=== PATIENT | female | born 1940 | race Caucasian/White ===

== ENCOUNTER 2016-07-25 10:12 | Emergency (ER) | payer MEDICARE ==
[2011-11-14 05:09] VITALS: BMI 40.3
[2016-07-25 11:02] LABS: APPEARANCE CLOUDY (CLEAR); BACTERIA MANY /hpf (NONE SEEN); BILIRUBIN NEGATIVE (NEGATIVE); COLOR YELLOW (YELLOW); EPITHELIAL CELLS 0-5 /hpf (0-5); GLUCOSE NEGATIVE (NEGATIVE); KETONE NEGATIVE (NEGATIVE); LEUKOCYTE ESTERASE 2+ (NEGATIVE); MUCUS <1+ /lpf (NONE SEEN); NITRITE POSITIVE (NEGATIVE); PROTEIN 3+ mg/dL (NEGATIVE); SPECIFIC GRAVITY 1.015 (1.005-1.020); UROBILINOGEN NORMAL (NORMAL); WHITE CELLS - URINE >50 /hpf (0-5)
[2016-07-25 11:22] LABS: ALBUMIN 3.2 g/dL (3.4-5.0); BILIRUBIN - TOTAL 0.33 mg/dL (0.2-1.3); CARBON DIOXIDE 31.4 mmol/L (21.0-32.0); CREATININE - SERUM 1.9 mg/dL (0.6-1.3); POTASSIUM - SERUM 5.4 mmol/L (3.5-5.1); PROTEIN - SERUM 7.1 g/dL (6.4-8.2)
[2016-07-25 11:36] LABS: BASOPHILS 0.2 % (0-2); EOSINOPHILS 1.2 % (0-7); HEMATOCRIT 48.3 % (36.0-48.0); HEMOGLOBIN 14.8 g/dL (12-16); IMMATURE GRANULOCYTES 0.2 % (0-5); LYMPHOCYTES 13.2 % (15-50); MCHC 30.6 g/dL (31.0-37.0); MCV 94.5 fL (80.0-100.0); MEAN PLATELET VOLUME 11.3 fL (7.4-10.4); MONOCYTES 6.6 % (2-11); NEUTROPHILS 78.6 % (40-80); PLATELET COUNT 286 10x3/uL (130-400); RBC 5.11 10x6/uL (4.00-5.40); RDW 13.9 % (11.5-14.5)
== END 2016-07-25 13:45 | disposition home or self-care (01) ==
LOC: D.ER 10:12
PROVIDERS: Emergency Medicine
DX: N39.0 Urinary tract infection, site not specified (principal); E11.9 Type 2 diabetes mellitus without complications; I50.9 Heart failure, unspecified

== ENCOUNTER 2016-08-12 19:17 | Emergency (ER) | payer MEDICARE ==
[2011-11-14 05:09] VITALS: BMI 40.3
[2016-08-12 19:54] LABS: BASOPHILS 0.3 % (0-2); EOSINOPHILS 0.3 % (0-7); HEMATOCRIT 50.8 % (36.0-48.0); HEMOGLOBIN 16.1 g/dL (12-16); IMMATURE GRANULOCYTES 0.2 % (0-5); LYMPHOCYTES 10.1 % (15-50); MCH 29.7 pg (26.0-34.0); MCHC 31.7 g/dL (31.0-37.0); MCV 93.6 fL (80.0-100.0); MEAN PLATELET VOLUME 11.4 fL (7.4-10.4); NEUTROPHILS 78.1 % (40-80); PLATELET COUNT 256 10x3/uL (130-400); RBC 5.43 10x6/uL (4.00-5.40); RDW 13.5 % (11.5-14.5); WBC 10.3 10x3/uL (4.8-10.8)
[2016-08-12 20:12] LABS: APTT 25.3 SECONDS (22.8-39.4); INR 1.06 (0.85-1.17); PROTIME 13.7 SECONDS (11.6-15.0)
[2016-08-12 20:17] LABS: ALBUMIN 3.2 g/dL (3.4-5.0); ANION GAP 13.6 mmol/L (8-16); BILIRUBIN - TOTAL 0.43 mg/dL (0.2-1.3); CALCIUM 8.9 mg/dL (8.5-10.1); CARBON DIOXIDE 27.4 mmol/L (21.0-32.0); CREATININE - SERUM 1.7 mg/dL (0.6-1.3)
[2016-08-12 21:25] LABS: APPEARANCE CLEAR (CLEAR); BILIRUBIN NEGATIVE (NEGATIVE); COLOR YELLOW (YELLOW); GLUCOSE NEGATIVE (NEGATIVE); KETONE NEGATIVE (NEGATIVE); LEUKOCYTE ESTERASE NEGATIVE (NEGATIVE); NITRITE NEGATIVE (NEGATIVE); PROTEIN TRACE mg/dL (NEGATIVE); SPECIFIC GRAVITY 1.025 (1.005-1.020); UROBILINOGEN NORMAL (NORMAL)
== END 2016-08-12 21:45 | disposition home or self-care (01) ==
LOC: D.ER 19:17
PROVIDERS: Emergency Medicine; Nurse Practitioner Acute Care
DX: R10.9 Unspecified abdominal pain (principal); R92.1 Mammographic calcification found on diagnostic imaging of breast

== ENCOUNTER → 2017-02-18 14:30 | Outpatient (CLI) | payer MEDICARE, MEDICAID ==
[2011-11-14 05:09] VITALS: BMI 40.3
== END | disposition home or self-care (01) ==
LOC: D.MRI 14:30
DX: S43.402D Unspecified sprain of left shoulder joint, subsequent encounter (principal)

== ENCOUNTER 2017-06-09 08:00 | Day surgery (SDC) | payer MEDICARE, MEDICAID ==
[~2017-06-09] VITALS: Ht 157.5 cm; Wt 104.5 kg
--- NOTE | ~2017-06-09 | OP ---
PATIENT NAME: SANDRA BATES MEDICAL RECORD: [id number] :42 LOCATION:[facility] ADMISSION DATE: SURGEON: J LUIS BENTON DO DATE OF OPERATION: 06/09/2017 PROCEDURE: EGD with biopsies. INDICATIONS FOR PROCEDURE: Heartburn and shoulder pain. SCOPE: Olympus video gastroscope. MEDICATIONS: Propofol 150 mg IV per anesthesia. ESTIMATED BLOOD LOSS: Minimal. COMPLICATIONS: None. FINDINGS: Informed consent was given. The patient was made comfortable with the above medication. After reaching an adequate level of sedation by slow IV push, the patient was placed on her left side. The endoscope was advanced under direct visualization through the mouth to the second portion of the duodenum. The upper, middle, and lower thirds of the esophagus appeared normal. At the GE junction, there was very mild evidence of LA class A reflux induced esophagitis without ulcers or erosions. The endoscope was advanced beyond the GE junction into the stomach and retroflexed to view the cardia and fundus, which appeared normal. Throughout the proximal body, there were some patchy areas of erythema and granularity as well as congestion. There was a patchy site where there appeared to be multiple superficial ulcerations. In the antrum, there was also some patchy erythema, granularity, and congestion consistent with possible gastritis. Random biopsies were taken to submit for histology and to rule out H. pylori. There was a single polypoid site in the prepyloric region. This was biopsied using cold forceps. The site did not appear malignant. Biopsies were taken to confirm the benign nature. It did appear consistent with reactive gastritis and polypoid formation. The endoscope was advanced beyond the pylorus into the duodenum where the bulb, first portion, and second portion of the duodenum appeared normal. The endoscope was withdrawn from the patient. The patient tolerated the procedure well and there were no complications. IMPRESSION: 1. LA class A reflux-induced esophagitis. 2. Gastritis with few superficial ulcerations without bleeding. 3. Single gastric polyp in the prepyloric region. 4. Normal duodenum. PLAN AND RECOMMENDATIONS: 1. Discharge home when recovery parameters are met. 2. GERD precautions. 3. Continue current medications including Protonix, Carafate, and Zantac as needed for heartburn symptoms. 4. We will order a right upper quadrant ultrasound and consider a PIPIDA scan regarding the epigastric pain and pain in the shoulder. 5. Further recommendations to follow diagnostic imaging. TRANSINT:[id number] Voice Confirmation ID: [id number] DOCUMENT ID: [id number] OPERATIVE REPORT [id number] SANDRA BATES,J LUIS Ernandez DO at 1524 CC: [id number] DICTATION DATE: 06/09/17 0957 STOCK MANAGER: 06/09/17 1255 [facility] 06/09/17 [place] [id number] [place] [address]
[2017-06-09] MEDS ORDERED: HYDROCORTISONE30 G9 TOPICAL (08:31)
[2017-06-09] MEDS ORDERED: CARAFATE1 G/10 ML (08:31)
[2017-06-09] MEDS ORDERED: FLUNISOLIDE29 MCG NASAL (08:31)
[2017-06-09] MEDS ORDERED: HUMALOG ×2 (08:32→08:33)
[2017-06-09] MEDS ORDERED: GABAPENTIN100 MG PO (08:32)
[2017-06-09] MEDS ORDERED: ZOCOR80 MG PO (08:34)
[2017-06-09] MEDS ORDERED: TOPROL XL25 MG PO (08:34)
[2017-06-09] MEDS ORDERED: LEVEMIR FLEXTOUCH 10 (08:34)
[2017-06-09] MEDS ORDERED: PLAVIX75 MG PO (08:36)
[2017-06-09] MEDS ORDERED: BAYER CHEWABLE81 MG PO (08:36)
[2017-06-09 08:44] VITALS: Ht 157.5 cm; Wt 104.5 kg
[2017-06-09 09:29] LABS: HEMATOCRIT 47.4 % (36.0-48.0); HEMOGLOBIN 15.2 g/dL (12-16); MCH 29.9 pg (26.0-34.0); MCHC 32.1 g/dL (31.0-37.0); MCV 93.3 fL (80.0-100.0); MEAN PLATELET VOLUME 12.2 fL (7.4-10.4); RBC 5.08 10x6/uL (4.00-5.40); RDW 14.9 % (11.5-14.5); WBC 10.9 10x3/uL (4.8-10.8)
== END 2017-06-09 11:00 | disposition home or self-care (01) ==
LOC: D.OPS 08:00
PROVIDERS: Anesthesiology
DX: K21.0 Gastro-esophageal reflux disease with esophagitis (principal); K29.70 Gastritis, unspecified, without bleeding; K31.7 Polyp of stomach and duodenum; I25.10 Atherosclerotic heart disease of native coronary artery without angina pectoris; E11.9 Type 2 diabetes mellitus without complications; E66.01 Morbid (severe) obesity due to excess calories; Z01.812 Encounter for preprocedural laboratory examination

== ENCOUNTER 2017-06-21 23:55 | Emergency (ER) | payer MEDICARE, MEDICAID ==
[2017-06-09 08:44] VITALS: BMI 42.1
[~2017-06-21 23:55] MED LIST: BAYER CHEWABLE81 MG PO; CARAFATE1 G/10 ML; FLUNISOLIDE29 MCG NASAL; GABAPENTIN100 MG PO; HUMALOG; HYDROCORTISONE30 G9 TOPICAL; LEVEMIR FLEXTOUCH 10; PLAVIX75 MG PO; TOPROL XL25 MG PO; ZOCOR80 MG PO
[2017-06-22 00:22] LABS: BASOPHILS 0.4 % (0-2); EOSINOPHILS 3.6 % (0-7); HEMATOCRIT 46.6 % (36.0-48.0); HEMOGLOBIN 14.9 g/dL (12-16); IMMATURE GRANULOCYTES 0.6 % (0-5); LYMPHOCYTES 27.3 % (15-50); MCH 29.7 pg (26.0-34.0); MCV 92.8 fL (80.0-100.0); MEAN PLATELET VOLUME 10.4 fL (7.4-10.4); MONOCYTES 11.6 % (2-11); NEUTROPHILS 56.5 % (40-80); PLATELET COUNT 326 10x3/uL (130-400); RBC 5.02 10x6/uL (4.00-5.40); RDW 14.4 % (11.5-14.5); WBC 12.6 10x3/uL (4.8-10.8)
[2017-06-22 00:31] LABS: INR 0.93 (0.85-1.17)
[2017-06-22 00:32] LABS: APTT 25.1 SECONDS (22.8-39.4)
[2017-06-22 00:36] LABS: ANION GAP 6.8 mmol/L (8-16); BILIRUBIN - TOTAL 0.14 mg/dL (0.2-1.3); CALCIUM 9.2 mg/dL (8.5-10.1); CARBON DIOXIDE 30.5 mmol/L (21.0-32.0); CREATININE - SERUM 1.5 mg/dL (0.6-1.3); POTASSIUM - SERUM 4.3 mmol/L (3.5-5.1); PROTEIN - SERUM 7.6 g/dL (6.4-8.2)
== END 2017-06-22 01:26 | disposition home or self-care (01) ==
LOC: D.ER 23:55
PROVIDERS: Emergency Medicine
DX: G45.9 Transient cerebral ischemic attack, unspecified (principal); I10 Essential (primary) hypertension; E11.9 Type 2 diabetes mellitus without complications

== ENCOUNTER 2017-07-17 05:16 | Day surgery (SDC) | payer MEDICARE, MEDICAID ==
[2017-07-16 16:00] LABS: HEMOGLOBIN 15.3 g/dL (12-16); MCH 29.7 pg (26.0-34.0); MCHC 31.9 g/dL (31.0-37.0); MEAN PLATELET VOLUME 11.1 fL (7.4-10.4); RBC 5.16 10x6/uL (4.00-5.40); RDW 13.7 % (11.5-14.5)
[2017-07-16 16:14] LABS: ANION GAP 11.4 mmol/L (8-16); CALCIUM 9.4 mg/dL (8.5-10.1); CARBON DIOXIDE 32.5 mmol/L (21.0-32.0); CREATININE - SERUM 1.6 mg/dL (0.6-1.3); POTASSIUM - SERUM 4.9 mmol/L (3.5-5.1)
[~2017-07-17] VITALS: Ht 157.5 cm; Wt 96.6 kg
--- NOTE | ~2017-07-17 | OP ---
PATIENT NAME: SANDRA BATES MEDICAL RECORD: [id number] :42 LOCATION:[facility] ADMISSION DATE: SURGEON: TRUE SOTO MD DATE OF OPERATION: 07/17/2017 SURGEON: True Soto MD ANESTHESIA: MAC by Partha Bell M.D. DIAGNOSIS: Urge urinary incontinence. PROCEDURES: Cystoscopy and intravesical Botox injection 100 units. FINDINGS: Diffuse bladder inflammation with no bladder tumors. Single ureteral orifices bilaterally. BLOOD LOSS: None. CLINICAL HISTORY: This is a 77-year-old female with urge urinary incontinence. She also has symptoms of stress urinary incontinence, but I did not see any stress incontinence on examination. She was given Myrbetriq for 3 weeks and she had no response to medication. She would like to try intravesical Botox. She has a history of coronary artery stents, which were last placed [address] Echols gave permission to withhold her Plavix prior to the procedure. She is allergic to MORPHINE, PENICILLIN, and SULFA. She was given Levaquin IV detention attendant to the OR. DESCRIPTION OF PROCEDURE: The patient was given IV sedation. She was placed in the dorsal lithotomy position and prepped and draped. The 21-Yi cystoscope with 30-degree lens was used for visualization. Findings are as listed above. The Larry's needle was used at 10 different locations. Then, 1 cc of Botox solution was injected at each of these 10 different sites. Each mL of Botox solution contains 10 units of Botox. Once the injections were completed, the bladder was emptied through the scope and then the patient was brought to the recovery room. TRANSINT:[id number] Voice Confirmation ID: [id number] DOCUMENT ID: [id number] TRUE SOTO MD at 1413 CC: [id number] DICTATION DATE: 07/17/17 0811 VAULT SERVICE MECHANIC: 07/17/17 1356 [facility] 07/17/17 [place] [id number]
[2017-07-17 05:52] VITALS: Ht 157.5 cm; Wt 96.6 kg
== END 2017-07-17 09:05 | disposition home or self-care (01) ==
LOC: D.OPS 05:16
PROVIDERS: Anesthesiology
DX: N39.41 Urge incontinence (principal); Z95.5 Presence of coronary angioplasty implant and graft; Z79.02 Long term (current) use of antithrombotics/antiplatelets; Z88.5 Allergy status to narcotic agent; Z88.0 Allergy status to penicillin; Z88.2 Allergy status to sulfonamides; Z01.812 Encounter for preprocedural laboratory examination

== ENCOUNTER 2017-12-21 12:27 | Inpatient (IN) | payer MEDICARE, MEDICAID ==
[~2017-12-21] VITALS: Ht 157.5 cm; Wt 97.5 kg
--- NOTE | ~2017-12-21 | MORECARE ---
CASE MANAGEMENT DISCHARGE SUMMARY PATIENT: SANDRA BATES UNIT: [id number] ADM DATE: 12/21/17 AGE: 77 : 41 SEX: F ROOM/BED: D.2240 AUTHOR: MARILEE OAKES PHYSICIAN: REFERRING PHYSICIAN: LILLIANA LOVE MD DATE OF SERVICE: 12/24/17 Discharge Plan Patient Name: SANDRA BATES [facility] [facility] 1940 Planned Disposition: Home Anticipated Discharge Date: Discharge Date: Expected LOS: Initial Reviewer: [email or web address] Initial Review Date: 12/24/2017 Generated: 12/24/17 4:10 pm DCPIA - Discharge Planning Initial Assessment Updated by [id number]: Ailyn Alamo on 12/24/17 3:04 pm * Is the patient Alert and Oriented? Yes * How many steps to enter\exit or inside your home? 4-5 w/rail * PCP Dr. Otoole * Pharmacy [place] * Preadmission Environment Home with Family * ADLs Partial Dependent * Partial ADLs (Assistance needed) Ambulation Bathing Dressing Medication Management Transfers * Equipment Elevated [facility] Bed Other Oxygen Rolling Walker Wheelchair * Other Equipment Portable oxygen Pulse oximeter Blood Pressure Machine * List name and contact numbers for known caregivers / representatives who currently or will assist patient after discharge: Diane Elizondo - DTR - [phone] * Verbal permission to speak to the caregivers and representatives has been obtained from the patient. Yes * Community resources currently utilized Private Duty Care * Please name any agencies selected above. [facility] * Additional services required to return to the preadmission environment? No * Can the patient safely return to the preadmission environment? Yes * Has this patient been hospitalized within the prior 30 days at any hospital? No Last DP export: 12/24/17 1:55 Patient Name: SANDRA BATES Page [id number] at 1511 All edits/amendments must be made on the electronic document DICTATION DATE: 12/24/17 1510 BLOWER INSULATOR: DEWEY 12/24/17 1510 RPT#: [id number] DC DATE: STATUS: ADM IN [facility] [address] [facility] [place] [address] END OF REPORT
--- NOTE | ~2017-12-21 | MORECARE ---
CASE MANAGEMENT DISCHARGE SUMMARY PATIENT: SANDRA BATES UNIT: [id number] ADM DATE: 12/21/17 AGE: 77 : 41 SEX: F ROOM/BED: D.2240 AUTHOR: MARILEE OAKES PHYSICIAN: REFERRING PHYSICIAN: LILLIANA LOVE MD DATE OF SERVICE: 01/02/18 Discharge Plan Patient Name: SANDRA BATES Facility: [facility]:[place] : 1940 Planned Disposition: Home Anticipated Discharge Date: Discharge Date: 01/01/2018 Expected LOS: Initial Reviewer: [email or web address] Initial Review Date: 12/24/2017 Generated: 01/02/18 6:06 pm Comments DCP- Discharge Planning Updated by [id number]: Ailyn Alamo on 01/01/18 11:[address] Discharging home today with resumption of [facility]. Diane Elizondo has already called her boss to continue care. She will also have house calls. Declines Home health at this time. Cm will continue to follow and assist with discharge planning/needs. DCP- Discharge Planning Updated by [id number]: Ailyn Alamo on 01/01/18 10:[address] Received a call from a Sunitha in inpatient rehab that insurance has denied inpatient rehab. I spoke with the patient and her daughter about SNF and they both decline. I spoke with them about home health. Daughter works for [facility] and states that is all she needs. States they have all the DME needed, including lift chair, wheelchairs, BSC, oxygen and a door campos that rings to her home. Patient and daughter both state they feel going home with [facility] is a safe discharge. Anticipate to discharge home today with resumption of [facility] (daughter works there). DCP- Discharge Planning Updated by [email or web address]: Ailyn Alamo on 12/24/17 2:[address] Patient Name: SANDRA BATES Admission Status: ER Accout number: [id number] Admission Date: 12-21-2017 : 1940 Admission Diagnosis:URINARY TRACT INFECTION, SITE NOT SPECIFIED Attending: IVAN, Current LOS: 3 Anticipated DC Date: Planned Disposition: Home Primary Insurance: [facility] MEDICARE SOLUTIONS Discharge Planning Comments: CM met with patient to discuss discharge planning, her daughter is in the room. She lives with her . She uses a walker for ambulation. She does have a wheelchair. Her daughter states that she is at their house 6-10 hours a day. Her daughter, Diane, works for [employer] and provides personal care. I discussed the availability of inpatient rehab, SNF, and home health services. At this time, the daughter and patient refuse. Patient states her daughter is able to take care of her needs. CM will continue to follow and assist with discharge planning/needs. Automation Qa Analyst: Ailyn Alamo DCPIA - Discharge Planning Initial Assessment Updated by [id number]: Ailny Alamo on 12/24/17 3:04 pm * Is the patient Alert and Oriented? Yes * How many steps to enter\exit or inside your home? 4-5 w/rail * PCP Dr. Otoole * Pharmacy [place] * Preadmission Environment Home with Family * ADLs Partial Dependent * Partial ADLs (Assistance needed) Ambulation Bathing Dressing Medication Management Transfers * Equipment Elevated [facility] Bed Other Oxygen Rolling Walker Wheelchair * Other Equipment Portable oxygen Pulse oximeter Blood Pressure Machine * List name and contact numbers for known caregivers / representatives who currently or will assist patient after discharge: Diane Elizondo - DTR - [phone] * Verbal permission to speak to the caregivers and representatives has been obtained from the patient. Yes * Community resources currently utilized Private Duty Care * Please name any agencies selected above. [facility] * Additional services required to return to the preadmission environment? No * Can the patient safely return to the preadmission environment? Yes * Has this patient been hospitalized within the prior 30 days at any hospital? No Coverage Notice Reviewer: [email or web address] - Ailyn Alamo Notice Issued Date-Time: 01/01/2018 12:06 Notice Type: IM Discharge Notice Notice Delivered To: Patient Relationship to Patient: Self Medical Dosimetrist Name: Diane Elizondo Delivery Method: HAND - Hand Delivered Connie Days: Prior Verbal Notification: Recipient Understood Notice: Yes Recipient Signature: Yes Med Rec Note Co-signed by Attending: Coverage Notice Comment: IMM explained, signed, copy given and original placed in MR Last DP export: 01/01/18 11:18 a Patient Name: SANDRA BATES Page 70483 at 1706 All edits/amendments must be made on the electronic document DICTATION DATE: 01/02/181704 RADIO FREQUENCY TECHNICIAN: DEWEY 01/02/181704 RPT#: [id number] DC DATE:01/01/18 STATUS: DIS IN [facility] [address] [place] [address] END OF REPORT
--- NOTE | ~2017-12-21 | MORECARE ---
CASE MANAGEMENT DISCHARGE SUMMARY PATIENT: SANDAR BATES UNIT: [id number] ADM DATE: 12/21/17 AGE: 77 : 41 SEX: F ROOM/BED: D.2240 AUTHOR: MARILEE OAKES PHYSICIAN: REFERRING PHYSICIAN: LILLIANA LOVE MD DATE OF SERVICE: 12/24/17 Discharge Plan Patient Name: SANDRA BATES [facility] [facility] 1940 Planned Disposition: Home Anticipated Discharge Date: Discharge Date: Expected LOS: Initial Reviewer: [email or web address] Initial Review Date: 12/24/2017 Generated: 12/24/17 3:55 pm Patient Name: SANDRA BATES Page 25511 at 1456 All edits/amendments must be made on the electronic document DICTATION DATE: 12/24/171454 REFRIGERATING ENGINEER: DEWEY 12/24/171454 RPT#: [id number] DC DATE: STATUS: ADM IN [facility] [address] [place] [address] END OF REPORT
--- NOTE | ~2017-12-21 | MORECARE ---
CASE MANAGEMENT DISCHARGE SUMMARY PATIENT: SANDRA BATES UNIT: [id number] ADM DATE: 12/21/17 AGE: 77 : 41 SEX: F ROOM/BED: D.2240 AUTHOR: MARILEE OAKES PHYSICIAN: REFERRING PHYSICIAN: LILLIANA LOVE MD DATE OF SERVICE: 12/24/17 Discharge Plan Patient Name: SANDRA BATES Facility: [facility]:[place] : 1940 Planned Disposition: Home Anticipated Discharge Date: Discharge Date: Expected LOS: Initial Reviewer: [id number] Initial Review Date: 12/24/2017 Generated: 12/24/17 4:18 pm Comments DCP- Discharge Planning Updated by [id number]: Ailyn Alamo on 12/24/17 2:[address] Patient Name: SANDRA BATES Admission Status: ER Accout number: [id number] Admission Date: 12-21-2017 : 1940 Admission Diagnosis:URINARY TRACT INFECTION, SITE NOT SPECIFIED Attending: IVAN, Current LOS: 3 Anticipated DC Date: Planned Disposition: Home Primary Insurance: [facility] MEDICARE SOLUTIONS Discharge Planning Comments: CM met with patient to discuss discharge planning, her daughter is in the room. She lives with her . She uses a walker for ambulation. She does have a wheelchair. Her daughter states that she is at their house 6-10 hours a day. Her daughter, Diane, works for [employer] and provides personal care. I discussed the availability of inpatient rehab, SNF, and home health services. At this time, the daughter and patient refuse. Patient states her daughter is able to take care of her needs. CM will continue to follow and assist with discharge planning/needs. Trailer Body Assembler: Ailyn Alamo DCPIA - Discharge Planning Initial Assessment Updated by [id number]: Ailyn Alamo on 12/24/17 3:04 pm * Is the patient Alert and Oriented? Yes * How many steps to enter\exit or inside your home? 4-5 w/rail * PCP Dr. Otoole * Pharmacy [place] * Preadmission Environment Home with Family * ADLs Partial Dependent * Partial ADLs (Assistance needed) Ambulation Bathing Dressing Medication Management Transfers * Equipment Elevated [facility] Bed Other Oxygen Rolling Walker Wheelchair * Other Equipment Portable oxygen Pulse oximeter Blood Pressure Machine * List name and contact numbers for known caregivers / representatives who currently or will assist patient after discharge: Diane Elizondo - R - [phone] * Verbal permission to speak to the caregivers and representatives has been obtained from the patient. Yes * Community resources currently utilized Private Duty Care * Please name any agencies selected above. [facility] * Additional services required to return to the preadmission environment? No * Can the patient safely return to the preadmission environment? Yes * Has this patient been hospitalized within the prior 30 days at any hospital? No Last DP export: 12/24/17 2:11 Patient Name: SANDRA BATES Page 02626 at 1518 All edits/amendments must be made on the electronic document DICTATION DATE: 12/24/171517 COMMUNICABLE DISEASE SPECIALIST: DEWEY 12/24/171517 RPT#: [id number] NH DATE: STATUS: ADM IN [facility] [address] [place] [address] END OF REPORT
--- NOTE | ~2017-12-21 | MORECARE ---
CASE MANAGEMENT DISCHARGE SUMMARY PATIENT: SANDRA BATES UNIT: [id number] ADM DATE: 12/21/17 AGE: 77 : 41 SEX: F ROOM/BED: D.2240 AUTHOR: MARILEE OAKES PHYSICIAN: REFERRING PHYSICIAN: LILLIANA LOVE MD DATE OF SERVICE: 01/01/18 Discharge Plan Patient Name: SANDRA BATES [facility]:[place] : 1940 Planned Disposition: Home Anticipated Discharge Date: Discharge Date: Expected LOS: Initial Reviewer: [email or web address] Initial Review Date: 12/24/2017 Generated: 01/01/18 1:17 pm Comments DCP- Discharge Planning Updated by [email or web address]: Ailyn Alamo on 01/01/18 11:[address] Discharging home today with resumption of [facility]. Diane Elizondo has already called her boss to continue care. She will also have house calls. Declines Home health at this time. Cm will continue to follow and assist with discharge planning/needs. DCP- Discharge Planning Updated by [email or web address]: Ailyn Alamo on 01/01/18 10:[address] Received a call from a Sunitha in inpatient rehab that insurance has denied inpatient rehab. I spoke with the patient and her daughter about SNF and they both decline. I spoke with them about home health. Daughter works for [facility] and states that is all she needs. States they have all the DME needed, including lift chair, wheelchairs, BSC, oxygen and a door campos that rings to her home. Patient and daughter both state they feel going home with [facility] is a safe discharge. Anticipate to discharge home today with resumption of [facility] (daughter works there). DCP- Discharge Planning Updated by [email or web address]: Ailyn Cally on 12/24/17 2:[address] Patient Name: SANDRA BATES Admission Status: ER Accout number: [id number] Admission Date: 12-21-2017 : 1940 Admission Diagnosis:URINARY TRACT INFECTION, SITE NOT SPECIFIED Attending: IVAN, Current LOS: 3 Anticipated DC Date: Planned Disposition: Home Primary Insurance: [facility] MEDICARE SOLUTIONS Discharge Planning Comments: CM met with patient to discuss discharge planning, her daughter is in the room. She lives with her . She uses a walker for ambulation. She does have a wheelchair. Her daughter states that she is at their house 6-10 hours a day. Her daughter, Diane, works for [employer] and provides personal care. I discussed the availability of inpatient rehab, SNF, and home health services. At this time, the daughter and patient refuse. Patient states her daughter is able to take care of her needs. CM will continue to follow and assist with discharge planning/needs. Glass Decorator: Ailyn Alamo DCPIA - Discharge Planning Initial Assessment Updated by [email or web address]: Ailyn Alamo on 12/24/17 3:04 pm * Is the patient Alert and Oriented? Yes * How many steps to enter\exit or inside your home? 4-5 w/rail * PCP Dr. Otoole * Pharmacy [address] * Preadmission Environment Home with Family * ADLs Partial Dependent * Partial ADLs (Assistance needed) Ambulation Bathing Dressing Medication Management Transfers * Equipment Elevated [facility] Bed Other Oxygen Rolling Walker Wheelchair * Other Equipment Portable oxygen Pulse oximeter Blood Pressure Machine * List name and contact numbers for known caregivers / representatives who currently or will assist patient after discharge: Diane Elizondo - DTR - [phone] * Verbal permission to speak to the caregivers and representatives has been obtained from the patient. Yes * Community resources currently utilized Private Duty Care * Please name any agencies selected above. [facility] * Additional services required to return to the preadmission environment? No * Can the patient safely return to the preadmission environment? Yes * Has this patient been hospitalized within the prior 30 days at any hospital? No Coverage Notice Reviewer: [id number] - Ailyn Alamo Notice Issued Date-Time: 01/01/2018 12:06 Notice Type: IM Discharge Notice Notice Delivered To: Patient Relationship to Patient: Self Tin Worker Name: Diane Elizondo Delivery Method: HAND - Hand Delivered Connie Days: Prior Verbal Notification: Recipient Understood Notice: Yes Recipient Signature: Yes Med Rec Note Co-signed by Attending: Coverage Notice Comment: IMM explained, signed, copy given and original placed in MR Last DP export: 01/01/18 10:16 a Patient Name: SANDRA BATES Page 83112 at 1218 All edits/amendments must be made on the electronic document DICTATION DATE: 01/01/181216 RECRUITMENT COORDINATOR: DEWEY 01/01/181216 RPT#: [id number] DC DATE: STATUS: ADM IN [facility] [address] [place] [address] END OF REPORT
--- NOTE | ~2017-12-21 | MORECARE ---
CASE MANAGEMENT DISCHARGE SUMMARY PATIENT: SANDRA BATES UNIT: [id number] ADM DATE: 12/21/17 AGE: 77 : 41 SEX: F ROOM/BED: D.2240 AUTHOR: MARILEE OAKES PHYSICIAN: REFERRING PHYSICIAN: LILLIANA LOVE MD DATE OF SERVICE: 01/01/18 Discharge Plan Patient Name: SANDRA BATES Facility: [facility]:[place] : 1940 Planned Disposition: Home Anticipated Discharge Date: Discharge Date: Expected LOS: Initial Reviewer: [email or web address] Initial Review Date: 12/24/2017 Generated: 01/01/18 12:16 pm Comments DCP- Discharge Planning Updated by [email or web address]: Ailyn Alamo on 01/01/18 10:[address] Received a call from a Sunitha in inpatient rehab that insurance has denied inpatient rehab. I spoke with the patient and her daughter about SNF and they both decline. I spoke with them about home health. Daughter works for [facility] and states that is all she needs. States they have all the DME needed, including lift chair, wheelchairs, BSC, oxygen and a door campos that rings to her home. Patient and daughter both state they feel going home with [facility] is a safe discharge. Anticipate to discharge home today with resumption of [facility] (daughter works there). DCP- Discharge Planning Updated by [email or web address]: Ailyn Alamo on 12/24/17 2:[address] Patient Name: SANDRA BATES Admission Status: ER Accout number: [id number] Admission Date: 12-21-2017 : 1940 Admission Diagnosis:URINARY TRACT INFECTION, SITE NOT SPECIFIED Attending: IVAN, Current LOS: 3 Anticipated DC Date: Planned Disposition: Home Primary Insurance: [facility] MEDICARE SOLUTIONS Discharge Planning Comments: CM met with patient to discuss discharge planning, her daughter is in the room. She lives with her . She uses a walker for ambulation. She does have a wheelchair. Her daughter states that she is at their house 6-10 hours a day. Her daughter, Diane, works for [employer] and provides personal care. I discussed the availability of inpatient rehab, SNF, and home health services. At this time, the daughter and patient refuse. Patient states her daughter is able to take care of her needs. CM will continue to follow and assist with discharge planning/needs. Jewellery Designer: Ailyn Cally DCPIA - Discharge Planning Initial Assessment Updated by [email or web address]: Ailyn Alamo on 12/24/17 3:04 pm * Is the patient Alert and Oriented? Yes * How many steps to enter\exit or inside your home? 4-5 w/rail * PCP Dr. Otoole * Pharmacy [place] * Preadmission Environment Home with Family * ADLs Partial Dependent * Partial ADLs (Assistance needed) Ambulation Bathing Dressing Medication Management Transfers * Equipment Elevated [facility] Bed Other Oxygen Rolling Walker Wheelchair * Other Equipment Portable oxygen Pulse oximeter Blood Pressure Machine * List name and contact numbers for known caregivers / representatives who currently or will assist patient after discharge: Diane Elizondo - DTR - [phone] * Verbal permission to speak to the caregivers and representatives has been obtained from the patient. Yes * Community resources currently utilized Private Duty Care * Please name any agencies selected above. [facility] * Additional services required to return to the preadmission environment? No * Can the patient safely return to the preadmission environment? Yes * Has this patient been hospitalized within the prior 30 days at any hospital? No Last DP export: 12/24/17 2:18 Patient Name: SANDRA BATES Page 14247 at 1116 All edits/amendments must be made on the electronic document DICTATION DATE: 01/01/181114 INVESTIGATION SPECIALIST: DEWEY 01/01/18 111 RPT#: [id number] DC DATE: STATUS: ADM IN [facility] [address] [place] [address] END OF REPORT
[2017-12-21] MEDS ORDERED: OXYBUTYNIN CHLOR5 MG PO (12:35)
[2017-12-21] MEDS ORDERED: NORCO 10-325 TA1 TAB PO (12:35)
[2017-12-21 13:02] VITALS: BP 160/67
[2017-12-21 13:10] LABS: BASOPHILS 0.2 % (0-2); EOSINOPHILS 1.8 % (0-7); HEMATOCRIT 49.3 % (36.0-48.0); HEMOGLOBIN 15.8 g/dL (12-16); IMMATURE GRANULOCYTES 0.2 % (0-5); LYMPHOCYTES 22.9 % (15-50); MCH 29.9 pg (26.0-34.0); MCV 93.2 fL (80.0-100.0); MEAN PLATELET VOLUME 11.9 fL (7.4-10.4); MONOCYTES 9.9 % (2-11); PLATELET COUNT 241 10x3/uL (130-400); RBC 5.29 10x6/uL (4.00-5.40); RDW 14.5 % (11.5-14.5); WBC 12.5 10x3/uL (4.8-10.8)
[2017-12-21 13:22] LABS: ALBUMIN 2.9 g/dL (3.4-5.0); ALKALINE PHOSPHATASE 89 U/L (46-116); ALT (SGPT) 14 U/L (10-68); BILIRUBIN - TOTAL 0.54 mg/dL (0.2-1.3); CALC OSMOLALITY 276 mosm/kg (275-300); CALCIUM 9.1 mg/dL (8.5-10.1); CARBON DIOXIDE 27.8 mmol/L (21.0-32.0); CHLORIDE - SERUM 99 mmol/L (98-107); CREATININE - SERUM 1.6 mg/dL (0.6-1.3); GLUCOSE 145 mg/dL (74-106); POTASSIUM - SERUM 5.5 mmol/L (3.5-5.1); PROTEIN - SERUM 7.3 g/dL (6.4-8.2); SODIUM 135 mmol/L (136-145); UREA NITROGEN 23 mg/dL (7-18); eGFR NON AFRICAN AMERICAN 33 mL/min (90-120)
[2017-12-21 13:33] LABS: AMYLASE - SERUM 32 U/L (25-115); CKMB 0.3 U/L (0.0-3.6); CREATINE KINASE 69 UL (21-215); LIPASE 99 U/L (73-393); TROPONIN-I < 0.017 ng/mL (0.000-0.060)
[2017-12-21 14:59] LABS: APPEARANCE CLEAR (CLEAR); BILIRUBIN NEGATIVE (NEGATIVE); COLOR YELLOW (YELLOW); GLUCOSE NEGATIVE (NEGATIVE); KETONE NEGATIVE (NEGATIVE); NITRITE POSITIVE (NEGATIVE); PROTEIN 2+ mg/dL (NEGATIVE); UROBILINOGEN NORMAL (NORMAL)
[2017-12-21 15:01] LABS: BACTERIA MANY /hpf (NONE SEEN); EPITHELIAL CELLS 0-5 /hpf (0-5); RED CELLS - URINE 0-5 /hpf (0-5)
[2017-12-21 15:33] VITALS: BP 124/58
[2017-12-21 16:00] VITALS: BP 123/66
[2017-12-21 16:43] VITALS: BP 123/66
[2017-12-21] MEDS ORDERED: FLUNISOLIDE29 MCG NASAL (18:24)
[2017-12-21 18:34] VITALS: BP 120/38; BMI 39.4
[2017-12-21 19:13] VITALS: BP 133/53
[2017-12-22 04:25] VITALS: BP 125/64
[2017-12-22 05:37] LABS: BASOPHILS 0.2 % (0-2); EOSINOPHILS 0.8 % (0-7); HEMATOCRIT 42.8 % (36.0-48.0); HEMOGLOBIN 13.2 g/dL (12-16); IMMATURE GRANULOCYTES 0.3 % (0-5); LYMPHOCYTES 22.1 % (15-50); MCH 29.2 pg (26.0-34.0); MCHC 30.8 g/dL (31.0-37.0); MCV 94.7 fL (80.0-100.0); MEAN PLATELET VOLUME 11.4 fL (7.4-10.4); NEUTROPHILS 64.6 % (40-80); PLATELET COUNT 226 10x3/uL (130-400); RBC 4.52 10x6/uL (4.00-5.40); RDW 14.5 % (11.5-14.5); WBC 11.3 10x3/uL (4.8-10.8)
[2017-12-22 06:04] LABS: ALBUMIN 2.5 g/dL (3.4-5.0); BILIRUBIN - TOTAL 0.26 mg/dL (0.2-1.3); C-REACTIVE PROTEIN 8.7 mg/dL (0.0-0.9); CALCIUM 8.6 mg/dL (8.5-10.1); CARBON DIOXIDE 32.5 mmol/L (21.0-32.0); CREATININE - SERUM 1.7 mg/dL (0.6-1.3); PROTEIN - SERUM 6.4 g/dL (6.4-8.2)
[2017-12-22 06:06] LABS: ANION GAP 8.9 mmol/L (8-16); POTASSIUM - SERUM 4.4 mmol/L (3.5-5.1)
[2017-12-22 07:59] VITALS: BP 131/51
[2017-12-22 11:33] VITALS: BP 131/51
[2017-12-22 12:11] VITALS: BP 109/53
[2017-12-22 15:33] VITALS: Ht 157.5 cm; Wt 97.5 kg
[2017-12-22 17:01] VITALS: BP 119/43
[2017-12-22 20:43] VITALS: BP 147/62
[2017-12-23 03:35] VITALS: BP 127/58
[2017-12-23 05:08] LABS: BASOPHILS 0.1 % (0-2); EOSINOPHILS 1.8 % (0-7); HEMATOCRIT 44.2 % (36.0-48.0); HEMOGLOBIN 13.4 g/dL (12-16); IMMATURE GRANULOCYTES 0.3 % (0-5); LYMPHOCYTES 15.8 % (15-50); MCH 29.4 pg (26.0-34.0); MCHC 30.3 g/dL (31.0-37.0); MEAN PLATELET VOLUME 11.2 fL (7.4-10.4); PLATELET COUNT 238 10x3/uL (130-400); RBC 4.56 10x6/uL (4.00-5.40); RDW 14.6 % (11.5-14.5)
[2017-12-23 05:14] LABS: MCV 96.9 fL (80.0-100.0); WBC 14.2 10x3/uL (4.8-10.8)
[2017-12-23 05:22] LABS: ANION GAP 11.8 mmol/L (8-16); CALCIUM 8.7 mg/dL (8.5-10.1); CREATININE - SERUM 1.9 mg/dL (0.6-1.3); POTASSIUM - SERUM 4.8 mmol/L (3.5-5.1)
[2017-12-23 08:18] VITALS: BP 140/48
[2017-12-23 12:16] VITALS: BP 128/53
[2017-12-23 20:00] VITALS: BP 138/52
[2017-12-24 03:28] VITALS: BP 156/76
[2017-12-24 05:53] LABS: BASOPHILS 0.2 % (0-2); EOSINOPHILS 0.9 % (0-7); HEMATOCRIT 43.9 % (36.0-48.0); IMMATURE GRANULOCYTES 0.5 % (0-5); LYMPHOCYTES 15.3 % (15-50); MCHC 31.9 g/dL (31.0-37.0); MCV 97.1 fL (80.0-100.0); MEAN PLATELET VOLUME 11.7 fL (7.4-10.4); NEUTROPHILS 68.1 % (40-80); PLATELET COUNT 216 10x3/uL (130-400); RBC 4.52 10x6/uL (4.00-5.40); RDW 14.3 % (11.5-14.5); WBC 12.6 10x3/uL (4.8-10.8)
[2017-12-24 06:06] LABS: ANION GAP 13.9 mmol/L (8-16); CARBON DIOXIDE 24.3 mmol/L (21.0-32.0); CREATININE - SERUM 1.7 mg/dL (0.6-1.3)
[2017-12-24 06:09] LABS: POTASSIUM - SERUM 5.2 mmol/L (3.5-5.1)
[2017-12-24 09:07] VITALS: BP 181/75
[2017-12-24 13:09] VITALS: BP 152/66
[2017-12-24 17:14] VITALS: BP 113/62
[2017-12-24 19:18] VITALS: BP 183/70
[2017-12-25] VITALS: BP 185/78
[2017-12-25 04:00] VITALS: BP 153/61
[2017-12-25 04:55] LABS: BASOPHILS 0.3 % (0-2); EOSINOPHILS 0.8 % (0-7); HEMATOCRIT 42.1 % (36.0-48.0); HEMOGLOBIN 13.2 g/dL (12-16); IMMATURE GRANULOCYTES 0.3 % (0-5); MCH 29.9 pg (26.0-34.0); MCHC 31.4 g/dL (31.0-37.0); MCV 95.5 fL (80.0-100.0); MEAN PLATELET VOLUME 11.4 fL (7.4-10.4); MONOCYTES 9.6 % (2-11); PLATELET COUNT 245 10x3/uL (130-400); RBC 4.41 10x6/uL (4.00-5.40); RDW 14.2 % (11.5-14.5); WBC 11.9 10x3/uL (4.8-10.8)
[2017-12-25 05:17] LABS: ANION GAP 11.4 mmol/L (8-16); CALCIUM 9.1 mg/dL (8.5-10.1); CARBON DIOXIDE 27.3 mmol/L (21.0-32.0); CREATININE - SERUM 1.4 mg/dL (0.6-1.3); POTASSIUM - SERUM 4.7 mmol/L (3.5-5.1)
[2017-12-25 08:34] VITALS: BP 155/82
[2017-12-25 15:45] VITALS: BP 123/63
[2017-12-25 20:00] VITALS: BP 176/75
[2017-12-26 04:00] VITALS: BP 153/52
[2017-12-26 06:25] LABS: HEMATOCRIT 38.3 % (36.0-48.0); HEMOGLOBIN 11.8 g/dL (12-16); LYMPHOCYTES 11.9 % (15-50); MCH 28.7 pg (26.0-34.0); MCHC 30.8 g/dL (31.0-37.0); MEAN PLATELET VOLUME 10.9 fL (7.4-10.4); NEUTROPHILS 74.6 % (40-80); PLATELET COUNT 255 10x3/uL (130-400); RBC 4.11 10x6/uL (4.00-5.40); RDW 13.6 % (11.5-14.5); WBC 10.1 10x3/uL (4.8-10.8)
[2017-12-26 06:26] LABS: MCV 93.2 fL (80.0-100.0)
[2017-12-26 06:31] LABS: ANION GAP 8.5 mmol/L (8-16); CALCIUM 8.8 mg/dL (8.5-10.1); CARBON DIOXIDE 30.5 mmol/L (21.0-32.0); CREATININE - SERUM 1.2 mg/dL (0.6-1.3)
[2017-12-26 07:55] VITALS: BP 190/90
[2017-12-26 11:54] VITALS: BP 186/63
[2017-12-26 20:23] VITALS: BP 150/68
[2017-12-27 00:25] VITALS: BP 149/56
[2017-12-27 04:43] VITALS: BP 151/72
[2017-12-27 05:30] LABS: BASOPHILS 0.3 % (0-2); EOSINOPHILS 3.5 % (0-7); HEMATOCRIT 39.9 % (36.0-48.0); HEMOGLOBIN 12.4 g/dL (12-16); IMMATURE GRANULOCYTES 0.2 % (0-5); LYMPHOCYTES 15.4 % (15-50); MCH 29.2 pg (26.0-34.0); MCHC 31.1 g/dL (31.0-37.0); MCV 94.1 fL (80.0-100.0); MEAN PLATELET VOLUME 11.6 fL (7.4-10.4); MONOCYTES 13.3 % (2-11); NEUTROPHILS 67.3 % (40-80); RBC 4.24 10x6/uL (4.00-5.40); RDW 14.4 % (11.5-14.5); WBC 10.1 10x3/uL (4.8-10.8)
[2017-12-27 05:35] LABS: PLATELET COUNT 320 10x3/uL (130-400)
[2017-12-27 05:46] LABS: CALCIUM 9.3 mg/dL (8.5-10.1); CARBON DIOXIDE 29.9 mmol/L (21.0-32.0); CREATININE - SERUM 1.1 mg/dL (0.6-1.3); POTASSIUM - SERUM 3.9 mmol/L (3.5-5.1)
[2017-12-27 07:51] VITALS: BP 152/89
[2017-12-27 12:55] VITALS: BP 118/59
[2017-12-27 17:17] VITALS: BP 174/88
[2017-12-27 20:00] VITALS: BP 176/76
[2017-12-28] VITALS: BP 164/60
[2017-12-28 04:00] VITALS: BP 171/69
[2017-12-28 08:34] VITALS: BP 191/82
[2017-12-28 11:31] VITALS: BP 133/61
[2017-12-28 17:26] VITALS: BP 154/69
[2017-12-28 19:49] VITALS: BP 149/68
[2017-12-29 04:33] VITALS: BP 186/73
[2017-12-29 04:39] LABS: BASOPHILS 0.3 % (0-2); EOSINOPHILS 6.5 % (0-7); HEMATOCRIT 38.8 % (36.0-48.0); HEMOGLOBIN 12.1 g/dL (12-16); IMMATURE GRANULOCYTES 0.5 % (0-5); LYMPHOCYTES 20.7 % (15-50); MCH 29.2 pg (26.0-34.0); MCHC 31.2 g/dL (31.0-37.0); MCV 93.7 fL (80.0-100.0); MONOCYTES 10.3 % (2-11); NEUTROPHILS 61.7 % (40-80); PLATELET COUNT 365 10x3/uL (130-400); RBC 4.14 10x6/uL (4.00-5.40); RDW 14.2 % (11.5-14.5); WBC 10.7 10x3/uL (4.8-10.8)
[2017-12-29 04:55] LABS: ANION GAP 7.4 mmol/L (8-16); CALCIUM 9.4 mg/dL (8.5-10.1); CREATININE - SERUM 1.2 mg/dL (0.6-1.3); POTASSIUM - SERUM 3.4 mmol/L (3.5-5.1)
[2017-12-29 08:55] VITALS: BP 189/70
[2017-12-29 11:38] VITALS: BP 178/89
[2017-12-29 12:32] VITALS: BP 178/84
[2017-12-29 16:31] VITALS: BP 143/70
[2017-12-29 20:00] VITALS: BP 143/70
[2017-12-30] VITALS (8 sets, daily range): BP systolic 145–190; BP diastolic 51–77
[2017-12-30 10:51] LABS: BASOPHILS 0.2 % (0-2); EOSINOPHILS 5.4 % (0-7); HEMATOCRIT 39.3 % (36.0-48.0); HEMOGLOBIN 12.5 g/dL (12-16); IMMATURE GRANULOCYTES 0.4 % (0-5); LYMPHOCYTES 17.1 % (15-50); MCH 29.5 pg (26.0-34.0); MCHC 31.8 g/dL (31.0-37.0); MCV 92.7 fL (80.0-100.0); MEAN PLATELET VOLUME 10.7 fL (7.4-10.4); MONOCYTES 9.2 % (2-11); NEUTROPHILS 67.7 % (40-80); PLATELET COUNT 334 10x3/uL (130-400); RBC 4.24 10x6/uL (4.00-5.40); RDW 14.4 % (11.5-14.5); WBC 11.6 10x3/uL (4.8-10.8)
[2017-12-30 11:13] LABS: ALBUMIN 2.1 g/dL (3.4-5.0); ANION GAP 8.9 mmol/L (8-16); BILIRUBIN - TOTAL 0.21 mg/dL (0.2-1.3); CALCIUM 8.6 mg/dL (8.5-10.1); CARBON DIOXIDE 34.7 mmol/L (21.0-32.0); CREATININE - SERUM 1.2 mg/dL (0.6-1.3); POTASSIUM - SERUM 3.6 mmol/L (3.5-5.1); PROTEIN - SERUM 5.6 g/dL (6.4-8.2)
[2017-12-31 04:33] LABS: BASOPHILS 0.2 % (0-2); EOSINOPHILS 3.9 % (0-7); HEMATOCRIT 39.4 % (36.0-48.0); HEMOGLOBIN 12.4 g/dL (12-16); IMMATURE GRANULOCYTES 0.5 % (0-5); LYMPHOCYTES 12.9 % (15-50); MCHC 31.5 g/dL (31.0-37.0); MCV 92.3 fL (80.0-100.0); MEAN PLATELET VOLUME 10.9 fL (7.4-10.4); MONOCYTES 9.2 % (2-11); NEUTROPHILS 73.3 % (40-80); PLATELET COUNT 383 10x3/uL (130-400); RBC 4.27 10x6/uL (4.00-5.40); RDW 14.1 % (11.5-14.5); WBC 13.2 10x3/uL (4.8-10.8)
[2017-12-31 05:01] LABS: ALBUMIN 2.1 g/dL (3.4-5.0); ANION GAP 9.1 mmol/L (8-16); BILIRUBIN - TOTAL 0.13 mg/dL (0.2-1.3); CALCIUM 9.2 mg/dL (8.5-10.1); CARBON DIOXIDE 34.3 mmol/L (21.0-32.0); CREATININE - SERUM 1.2 mg/dL (0.6-1.3); POTASSIUM - SERUM 3.4 mmol/L (3.5-5.1); PROTEIN - SERUM 6.3 g/dL (6.4-8.2)
[2017-12-31 06:00] VITALS: BP 147/69
[2017-12-31 09:28] VITALS: BP 146/91
[2017-12-31 12:49] VITALS: BP 141/70
[2017-12-31 16:30] VITALS: BP 154/65
[2017-12-31 16:46] VITALS: BP 154/65
[2017-12-31 20:00] VITALS: BP 139/68
[2018-01-01 05:00] VITALS: BP 147/72
[2018-01-01 05:01] LABS: BASOPHILS 0.3 % (0-2); EOSINOPHILS 4.3 % (0-7); HEMATOCRIT 40.9 % (36.0-48.0); HEMOGLOBIN 12.9 g/dL (12-16); IMMATURE GRANULOCYTES 0.7 % (0-5); LYMPHOCYTES 21.1 % (15-50); MCH 29.3 pg (26.0-34.0); MCHC 31.5 g/dL (31.0-37.0); MCV 92.7 fL (80.0-100.0); MONOCYTES 11.6 % (2-11); PLATELET COUNT 396 10x3/uL (130-400); RBC 4.41 10x6/uL (4.00-5.40); RDW 14.3 % (11.5-14.5); WBC 10.6 10x3/uL (4.8-10.8)
[2018-01-01 05:15] LABS: ALBUMIN 2.2 g/dL (3.4-5.0); ANION GAP 6.1 mmol/L (8-16); BILIRUBIN - TOTAL 0.15 mg/dL (0.2-1.3); CALCIUM 9.1 mg/dL (8.5-10.1); CARBON DIOXIDE 37.4 mmol/L (21.0-32.0); CREATININE - SERUM 1.2 mg/dL (0.6-1.3); POTASSIUM - SERUM 3.5 mmol/L (3.5-5.1); PROTEIN - SERUM 6.4 g/dL (6.4-8.2)
[2018-01-01] MEDS ORDERED: NORVASC5 MG PO (11:02)
[2018-01-01] MEDS ORDERED: HYDRALAZINE HCL10 MG PO (11:02)
== END 2018-01-01 13:41 | disposition home or self-care (01) | DRG 690 ==
LOC: D.ER 12:27 → D.MS 16:05 → D.EDHOLD 16:05 → D.MS 17:20
PROVIDERS: Family Medicine; Internal Medicine Nephrology
DX: N39.0 Urinary tract infection, site not specified (principal); N17.9 Acute kidney failure, unspecified; B96.1 Klebsiella pneumoniae [K. pneumoniae] as the cause of diseases classified elsewhere; Z79.4 Long term (current) use of insulin; I10 Essential (primary) hypertension; R10.11 Right upper quadrant pain; E10.9 Type 1 diabetes mellitus without complications; R53.1 Weakness; G72.9 Myopathy, unspecified

== ENCOUNTER → 2018-02-18 10:42 | Outpatient (CLI) | payer MEDICARE, MEDICAID ==
[2017-12-22 15:33] VITALS: BMI 39.3
[~2018-02-18 10:42] MED LIST changes: +HYDRALAZINE HCL10 MG PO; +NORCO 10-325 TA1 TAB PO; +NORVASC5 MG PO; +OXYBUTYNIN CHLOR5 MG PO
[2018-02-18 11:23] LABS: ALBUMIN 2.9 g/dL (3.4-5.0); ANION GAP 15.5 mmol/L (8-16); BILIRUBIN - TOTAL 0.31 mg/dL (0.2-1.3); CALCIUM 9.3 mg/dL (8.5-10.1); CARBON DIOXIDE 27.5 mmol/L (21.0-32.0); CHOL - HDL RATIO 4.8 ratio (2.3-4.1); CREATININE - SERUM 1.6 mg/dL (0.6-1.3); LDL-HDL RATIO 2.5 ratio (1.5-3.5)
[2018-02-18 11:27] LABS: HEMOGLOBIN 13.5 g/dL (12-16); LYMPHOCYTES 28.3 % (15-50); MCH 29.3 pg (26.0-34.0); MCHC 31.4 g/dL (31.0-37.0); MCV 93.5 fL (80.0-100.0); MEAN PLATELET VOLUME 10.9 fL (7.4-10.4); NEUTROPHILS 61.3 % (40-80); RDW 14.8 % (11.5-14.5); WBC 8.9 10x3/uL (4.8-10.8)
[2018-02-18 11:30] LABS: PLATELET COUNT 257 10x3/uL (130-400)
== END | disposition home or self-care (01) ==
LOC: D.LABREF 10:42
PROVIDERS: Family Medicine
DX: E11.9 Type 2 diabetes mellitus without complications (principal); J44.9 Chronic obstructive pulmonary disease, unspecified; I50.9 Heart failure, unspecified

== ENCOUNTER 2018-11-17 02:49 | Inpatient (IN) | payer MEDICARE, MEDICAID ==
[~2018-11-17] VITALS: Ht 157.5 cm; Wt 87.7 kg
[2018-11-17] VITALS (7 sets, daily range): BP systolic 90–132; BP diastolic 38–58; BMI 35.4
--- NOTE | ~2018-11-17 | HEMODYNAMI ---
PATIENT:SANDRA BATES MEDICAL RECORD: [id number] : 42 LOCATION:[facility] D.2128 [id number] ADMISSION DATE: 11/17/18 Generatedon:11/17/201819:03 Patient name: SANDRA BATES Patient #: [id number] SSN: [id number] : 1940 Date of study: 11/17/2018 Page: Of Hemodynamic Procedure Report Patient Data Patient Demographics Procedure consent was obtained First Name: SANDRA Gender: Female Last Name: PAULO : 1940 [facility] Initial: E Age: 78 year(s) Patient #: [id number] Race: SSN: [id number] Additional ID: [id number] Contact details Address: [address] [place], [place] [address] [facility] State: [place] City: [place] Zip code: [address] Past Medical History Allergies Allergen Reaction Date Comments Reported Other allergy 11/17/2018 PCN, Sulfa, Morphine Admission Admission Data Admission Date: 11/17/2018 Admission Time: 4:52 Admit Source: Emergency department Room #: D.2128 Lab Results Lab Result Date: 11/17/2018 Lab Result Time: 3:58 Biochemistry Name Units Result Min Max BUN mg/dl 31 --(----)-* 7 18 Creatinine mg/dl 1.8 --(----)-* 0.6 1.3 CBC Name Units Result Min Max Hematocrit % 43.5 --(*---)-- 42 54 Hemoglobin g/dl 14.4 --(*---)-- 13.5 17.5 Procedure Procedure Types Cath Procedure Diagnostic Procedure [facility] w/Coronaries FFR/IVUS FFR Initial Sedation Charges Moderate Sedation up to 15 minutes PCI Procedure Coronary Stent Coronary Stent Initial Procedure Description Procedure Date Procedure Date: 11/17/2018 Procedure Start Time: 18:41 Procedure End Time: 19:00 Procedure Staff Name Function Saad Walker MD Performing Physician Julian Burris RT Monitor Mary Miguel RT Scrub Kristian Roland RN Nurse Procedure Data Cath Procedure Fluoroscopy Diagnostic fluoroscopy Total fluoroscopy Time: 4 time: 4 min min Diagnostic fluoroscopy Total fluoroscopy dose: dose: 1104 mGy 1104 mGy Contrast Material Contrast Material Type Amount (ml) Isovue 300 108 Entry Location Entry Primary Successful Side Size Upsize Upsize Entry Closure Hanna ccessful Closure Location (Fr) 1 (Fr) 2 (Fr) Remarks Device Remarks Radial Right 6 Fr Mechanical artery Short Compression Estimated blood loss: 10 ml Diagnostic catheters Device Type Used For End Catheter Placement DIAGNOSTIC [place] 110cm 5 Procedure Fr catheter ([id number]) Procedure Complications No complications Procedure Medications Medication Administration Route Dosage Oxygen etCO2 Nasal cannula 2 l/min Heparin Flush Bag added to field 2 bags (1000units/500ml NS) 0.9% NaCl I.V. 100 ml/hr Lidocaine 2% added to field 20 Radial Cocktail added to field 1 syringe (Verapamil 2mg/Nitro 400mcg/Heparin 1500units) Fentanyl I.V. 50 mcg Versed I.V. 1 mg Fentanyl I.V. 50 mcg Versed I.V. 1 mg Radial Cocktail I.A. 1 syringe (Verapamil 2mg/Nitro 400mcg/Heparin 1500units) Heparin Bolus I.V. 4000 units Hemodynamics Rest HGB: 14.4 (g/dl) Heart Rate: 106 (bpm) Snapshots Pre Cath Intra NCS Post Cath Vital Signs Time Heart Resp SPO2 etCO2 NIBP (mmHg) Rhythm Pain Sedation Rate (ipm) (%) (mmHg) Status Level (bpm) 18:32:09 106 19 98 30.7 Measuring NSR 0 (11) 10(A) , No pain 18:32:16 105 16 98 31.4 133/67(107) NSR 0 (11) 10(A) , No pain 18:36:30 103 16 98 15.7 121/58(77) NSR 0 (11) 10(A) , No pain 18:40:37 98 16 95 40.4 103/48(77) NSR 0 (11) 10(A) , No pain 18:44:51 96 16 95 40.4 93/45(70) NSR 0 (11) 9(A) , No pain 18:48:59 99 16 95 40.4 105/48(84) NSR 0 (11) 9(A) , No pain 18:53:07 101 17 95 39.6 113/50(78) NSR 0 (11) 9(A) , No pain 18:54:47 103 16 94 40.4 109/53(75) NSR 0 (11) 9(A) , No pain 18:58:59 103 26 94 37.4 110/52(84) NSR 0 (11) 9(A) , No pain Medications Time Medication Route Dose Verified Delivered Reason Not es Effectiveness by by 18:36:58 Oxygen etCO2 2 l/min Saad Townsend Per physician Nasal Denise Roland RN cannula 18:37:07 Heparin Flush added 2 bags Saad Townsend used for Bag to Denise Roland RN procedure (1000units/500ml field NS) 18:37:15 0.9% NaCl I.V. 100 Saad Townsend Per physician ml/hr Denise Roland RN 18:37:24 Lidocaine 2% added 20ml Saad Townsend used for to vial Denise Rloand RN procedure field 18:37:32 Radial Cocktail added 1 Saad Townsend used for (Verapamil to syringe Denise Roland RN procedure 2mg/Nitro field 400mcg/Heparin 1500units) 18:38:19 Fentanyl I.V. 50 mcg Saad Townsend for sedation Denise Roland RN 18:38:26 Versed I.V. 1 mg Saad Townsend for sedation Denise Roland RN 18:41:38 Fentanyl I.V. 50 mcg Saad Townsend for sedation Denise Roland RN 18:41:43 Versed I.V. 1 mg Saad Townsend for sedation Denise Roland RN 18:43:04 Radial Cocktail I.A. 1 Saad Nash for (Verapamil syringe Denise Walker MD vasodilation 2mg/Nitro 400mcg/Heparin 1500units) 18:51:55 Heparin Bolus I.V. 4000 Saad Townsend for units Denise Roland RN anticoagulation Procedure Log Time Note 18:05:22 Kristian Roland RN sent for patient. Start room use. 18:14:30 Informed consent obtained and on chart 18:21:56 Admit Source: Emergency department 18:22:14 ACC Patient presents with Unstable Angina CCS Anginal Class 3--Marked limitation of physical activity, angina occurs with ordinary activity.. 18:22:18 ACCPatient has been prescribed/administered the following anti-anginal medication within the last 2 weeks: Calcium Channel Blockers 18:22:20 Procedure Status Urgent Heart Cath (IP). 18:22:27 Time tracking: Regular hours (M-F 7:00 - 5:00) 18:22:30 Plan of Care:Hemodynamics will remain stable., Cardiac rhythm will remain stable., Comfort level will be maintained., Respiratory function will remain adequate., Patient/ family verbilizes understanding of procedure., Procedure tolerated without complication., Recovers from procedure without complications.. 18:22:35 Patient received from Med II to CCL 2 Alert and oriented. Tansferred to table in Supine position. 18:22:36 Warm blankets applied, and janey hugger turned on for patient comfort. 18:22:37 Correct patient and procedure confirmed by team. 18:22:37 ECG and BP/O2 sat monitors applied to patient. 18:22:38 Pre-procedure instructions explained to patient. 18:22:38 Pre-op teaching completed and patient verbalized understanding. 18:30:20 Vital chart was started 18:30:22 Baseline sample Acquired. 18:30:25 Rhythm: sinus tachycardia 18:35:01 H&P Date Dictated: 11/17/2018 Within 30 days and on chart.. 18:35:04 Family in patients room. 18:35:05 Patient NPO since Midnight. 18:35:22 Patient allergic to Other allergyPCN, Sulfa, Morphine 18:35:26 Is patient on blood thinner?Yes 18:35:30 ACC The patient was administered the following blood thiners within the last 24 hours: ACCAspirin, ACCPlavix 18:35:33 Is the patient allergic to Iodine/contrast media? No. 18:35:34 Patient diabetic? Yes. 18:35:35 If diabetic: On Metformin? No 18:35:38 Previous problem with sedation/anesthesia? No ? 18:35:42 Snore? Yes 18:35:43 Sleep apnea? No 18:35:44 Deviated septum? No 18:35:44 Opens mouth fully? Yes 18:35:45 Sticks out tongue? Yes 18:35:47 Airway obstruction? No ? 18:35:50 Dentures? Yes in tight 18:35:53 Pre procedure: right dorsailis pedis pulse 2+ Normal; easily identifiable; not easily obliterated 18:35:54 Modified Josue's test Ulnar < 7 seconds 18:35:56 Patient pain scale 0/10 ?. 18:35:58 IV patent on arrival in right antecubital with 0.9% NaCl at [facility]. 18:36:58 Oxygen 2 l/min etCO2 Nasal cannula was administered by Kristian Roland RN; Per physician; 18:37:07 Heparin Flush Bag (1000units/500ml NS) 2 bags added to field was administered by Kristian Roland RN; used for procedure; 18:37:13 Lab Result : BUN 31 mg/dl 18:37:13 Lab Result : Creatinine 1.8 mg/dl 18:37:13 Lab Result : Hemoglobin 14.4 g/dl 18:37:13 Lab Result : Hematocrit 43.5 % 18:37:15 0.9% NaCl 100 ml/hr I.V. was administered by Kristian Roland RN; Per physician; 18:37:16 Lab results completed and on chart. 18:37:18 Right Radial & Right Groin area was prepped with chlora-prep and draped in sterile fashion 18:37:19 Alarms reviewed by R. N. 18:37:19 Sharps counted by scrub and verified by R.N. 18:37:21 Use device set Radial Dx or PCI 18:37:21 ACIST Syringe (91781) opened to sterile field. 18:37:22 Medline Cath Pack ([id number]) opened to sterile field. 18:37:22 Bag Decanter () opened to sterile field. 18:37:23 ACIST Hand Control (64089) opened to sterile field. 18:37:23 ACIST Manifold (62374) opened to sterile field. 18:37:23 Tegaderm 4 x 4 (1626W) opened to sterile field. 18:37:24 Lidocaine 2% 20ml vial added to field was administered by Kristian Roland RN; used for procedure; 18:37:24 MBrace Wrist Support ([id number]) opened to sterile field. 18:37:26 SHEATH 6FR RAIN (0291568) opened to sterile field. 18:37:27 EMERALD Guide Wire (116-684) opened to sterile field. 18:37:32 Radial Cocktail (Verapamil 2mg/Nitro 400mcg/Heparin 1500units) 1 syringe added to field was administered by Kristian Roland RN; used for procedure; 18:37:32 Physician arrived 18:37:33 --------ALL STOP TIME OUT------ 18:37:33 Final Timeout: patient, procedure, and site verified with staff and physician. All members of the team are in agreement. 18:37:34 Right Radial & Right Groin site verified by team. 18:37:37 Fire Safety Assessment: A--An alcohol-based skin anteseptic being used preoperatively., C--Open oxygen or nitrous oxide is being used., D--An ESU, laser, or fiber-optic light is being used. 18:37:39 Physical assessment completed. ASA score P 3 - A patient with severe systemic disease as per Saad Walker MD. 18:37:42 3a) 45-59 Moderately reduced kidney function. 18:37:44 Maximum allowable contrast dose (3.7 X eGFR X 0.75)80 ml. 18:37:47 Sedation plan: IV Moderate Sedation Medication:Versed, Fentanyl 18:38:19 Fentanyl 50 mcg I.V. was administered by Kristian Roland RN; for sedation; 18:38:26 Versed 1 mg I.V. was administered by Kristian Roland RN; for sedation; 18:40:36 Zero performed for pressure channel P1 18:40:45 Baseline sample Acquired. 18:41:29 Procedure started. 18:41:29 Full Disclosure recording started 18:41:33 Local anesthetic to right radial artery with Lidocaine 2% by Saad Walker MD.INITIAL ACCESS ONLY 18:41:38 Fentanyl 50 mcg I.V. was administered by Kristian Roland RN; for sedation; 18:41:43 Versed 1 mg I.V. was administered by Kristian Roland RN; for sedation; 18:41:46 A 6 Fr Short sheath was inserted into the Right Radial artery 18:43:01 A DIAGNOSTIC [place] 110cm 5 Fr catheter (880307) was advanced over the wire and used for Procedure. 18:43:04 Radial Cocktail (Verapamil 2mg/Nitro 400mcg/Heparin 1500units) 1 syringe I.A. was administered by Saad Walker MD; for vasodilation; 18:43:18 LV gram done using SOFIA 18:43:21 Injector settings: Ml/sec: 5, Volume: 15, 18:43:23 LV hemodynamics recorded. 18:43:34 EF : 60 % 18:43:44 LCA angiography performed. 18:45:54 [place] Verrata Plus pressure wire (45113A) opened to sterile field. 18:45:55 INFLATOR Merit BasixCompak (EU7365) opened to sterile field. 18:45:58 RCA angiography performed. 18:46:12 GUIDE 6FR EBU 3.0 SH catheter ([id number]) opened to sterile field. 18:46:15 Catheter exchanged over wire. 18:46:23 6 Fr ebu 3 sh guide catheter was inserted over the wire 18:47:55 FFR/IFR wire advanced. 18:48:59 Wire advanced across lesion. 18:50:26 pCirc lesion measured at 0.84 with IFR 18:51:55 Heparin Bolus 4000 units I.V. was administered by Kristian Roland RN; for anticoagulation; 18:52:01 ACCDominant side:Left 18:52:19 Pre PCI Site: [place] mCirc has 85% stenosis. 18:52:21 ACC Pre-intervention KRYSTIAN Flow is 3. 18:52:38 Place stent Inflation Number: 1 A LYNNE RX 2.5 x 22 stent ([id number]) was prepped and advanced across the Mid CX . The stent was deployed at 11 KATY for 0:10 (min:sec) . 18:52:53 Post PCI Site: [place] mCirc has 0% stenosis. 18:52:54 ACC Post-intervention KRYSTIAN Flow is 3. 18:54:02 Stent catheter was removed intact over wire. 18:54:02 Wire removed. 18:54:03 Guide catheter removed. 18:54:23 ZEPHYR REGULAR TR BAND (461899) opened to sterile field. 18:54:30 Sheath removed intact; hemostasis achieved with Mechanical Compression to the Right Radial artery. 18:54:31 Procedure ended.(Physican Out) 18:55:20 Fluoroscopy time 04.00 minutes. 18:55:24 Flurop Dose total: 1104 18:55:24 Fluoroscopy dose: 1104 mGy 18:56:10 Dose Area Product 68069 mGy/cm. 18:56:16 ACT drawn and resulted at 214 seconds. (normal therapeutic range 180-240 seconds). 18:57:02 Contrast amount:Isovue 300 108ml. 18:57:03 Maximum allowable dose exceeded? Yes. 18:57:04 Sharps counted by scrub and verified by R.N. 18:57:06 [place] band inflated with 12cc of air. 18:57:07 Insertion/operative site no bleeding no hematoma. 18:58:52 Post Procedure Pulses reassessed and unchanged 18:58:54 Post-procedure physical assessment completed. ASA score P 3 - A patient with severe systemic disease as per Saad Walker MD. 18:58:57 Post procedure rhythm: unchanged. 18:59:01 Estimated blood loss: 10 ml 18:59:30 Post procedure instruction explained to patient.Patient verbalizes understanding. 18:59:30 Patient needs reinforcement of post procedure teaching. 18:59:30 Procedure and supply charges have been captured, reviewed, submitted and are correct. 18:59:41 Procedure type changed to Cath procedure, Diagnostic procedure, LHC, LHC w/Coronaries, FFR/IVUS, FFR Initial, Sedation Charges, Moderate Sedation up to 15 minutes, PCI procedure, Coronary Stent, Coronary Stent Initial 19:00:43 Procedure Complication : No complications 19:00:45 Vital chart was stopped 19:00:46 See physician's report for complete and final results. 19:00:48 Report given to PCU. 19:00:50 Patient transfered to PCU with Stretcher. 19:00:51 Procedure ended. 19:00:51 Full Disclosure recording stopped 19:01:29 ACC-PCI Only Patient was given prescriptions, or instructed by Saad Walker MD to start/continue the following medications upon discharge: Aspirin, Plavix 19:01:30 End room use (Document Last) Intervention Summary Intervention Notes Time ActionType Lesion and Equipment Used Action# Pressure Duration Attributes 18:52:38 Place stent Mid CX LYNNE RX 2.5 x 1 11 00:10 22 stent ([id number]) Device Usage Item Name Manufacture Quantity Catalog Hospital Part Current Minimal Lot# / Number Charge Number Stock Stock Serial# Code ACIST Syringe Acist 1 83268 [id number] 774651 096728 20 (36433) Medical Systems Inc Medline Cath Medline 1 [id number] [id number] 22419 090346 5 Pack ([id number]) Bag Decanter Microtek 1 2001S 294203 87082 864737 5 (2001S) Medical Inc. ACIST Hand Acist 1 20029 952151 965050 984118 5 Control Medical (97112) Systems Inc ACIST Manifold Acist 1 50442 005510 152020 230331 5 (49923) Medical Systems Inc Tegaderm 4 x 4 3M 1 1626W 410615 029795 424110 5 (1626W) MBrace Wrist Advanced 1 140-0250-00 522302 86913 208162 5 Support Vascular ([id number]) Dynamics SHEATH 6FR Cardinal 1 1606577 875170 1971098 487821 5 RAIN (2326608) [facility] EMERALD Guide Cardinal 1 502455 088467 283077 073007 5 Wire (010-030) [facility] DIAGNOSTIC Terumo 1 40-7103 127740 200992 875156 5 [place] 110cm 5 Fr catheter (493320) [place] 1 34906F 697849 238021256 722852 5 Verrata Plus pressure wire (06731I) INFLATOR Merit Merit 1 XL5878 904163 301576 105232 15 [employer] Medical (PI1089) GUIDE 6FR EBU Medtronic 1 [id number] 929929 07144 845607 0 3.0 SH catheter ([id number]) LYNNE RX 2.5 x Medtronic 1 [id number] 751833 7563150 239080 5 [id number] 22 stent ([id number]) ZEPHYR REGULAR Cardinal 1 434750 712272 5965520 753173 5 Fishlabs (914284) Signature Audit [place] Stage Time Signature Unsigned Intra-Procedure 11/17/2018 Julian Burris 7:02:56 PM RT(R) Signatures Performing Physician : Signature : Saad Walker MD Date : Time : Monitor : Julian Burris RT Signature : Date : Time : Nurse : Kristian Roland RN Signature : Date : Time : [address] [place] [address]
[2018-11-17 03:34] LABS: BASOPHILS 0.1 % (0-2); EOSINOPHILS 0.5 % (0-7); HEMATOCRIT 43.5 % (36.0-48.0); HEMOGLOBIN 14.4 g/dL (12-16); IMMATURE GRANULOCYTES 0.2 % (0-5); MCHC 33.1 g/dL (31.0-37.0); MCV 93.8 fL (80.0-100.0); MEAN PLATELET VOLUME 11.6 fL (7.4-10.4); NEUTROPHILS 81.2 % (40-80); PLATELET COUNT 240 10x3/uL (130-400); RBC 4.64 10x6/uL (4.00-5.40); RDW 14.8 % (11.5-14.5); WBC 16.4 10x3/uL (4.8-10.8)
[2018-11-17 03:47] LABS: APTT 25.7 SECONDS (22.8-39.4); INR 1.01 (0.85-1.17); PROTIME 12.8 SECONDS (11.6-15.0)
[2018-11-17 03:50] LABS: ALBUMIN 3.1 g/dL (3.4-5.0); ALKALINE PHOSPHATASE 88 U/L (46-116); ALT (SGPT) 14 U/L (10-68); BILIRUBIN - TOTAL 0.46 mg/dL (0.2-1.3); CALC OSMOLALITY 297 mosm/kg (275-300); CALCIUM 8.8 mg/dL (8.5-10.1); CARBON DIOXIDE 31.5 mmol/L (21.0-32.0); CHLORIDE - SERUM 104 mmol/L (98-107); CREATININE - SERUM 1.8 mg/dL (0.6-1.3); GLUCOSE 207 mg/dL (74-106); POTASSIUM - SERUM 5.1 mmol/L (3.5-5.1); PROTEIN - SERUM 7.2 g/dL (6.4-8.2); SODIUM 143 mmol/L (136-145); UREA NITROGEN 31 mg/dL (7-18); eGFR NON AFRICAN AMERICAN 29 mL/min (90-120)
[2018-11-17 04:00] LABS: CKMB 0.3 U/L (0.0-3.6); CREATINE KINASE 22 UL (21-215)
--- NOTE | 2018-11-17 04:00 | NUR ---
IN AND OUT CATH PER STERILE TECHNIQUE - URINE TO LAB.
[2018-11-17 04:19] LABS: TROPONIN-I < 0.017 ng/mL (0.000-0.060)
[2018-11-17 04:49] LABS: APPEARANCE CLEAR (CLEAR); BILIRUBIN NEGATIVE (NEGATIVE); COLOR YELLOW (YELLOW); GLUCOSE NEGATIVE (NEGATIVE); KETONE NEGATIVE (NEGATIVE); NITRITE NEGATIVE (NEGATIVE); PROTEIN 2+ mg/dL (NEGATIVE); SPECIFIC GRAVITY 1.015 (1.005-1.020); UROBILINOGEN NORMAL (NORMAL)
[2018-11-17 04:50] LABS: AMORPHOUS SEDIMENT <1+ /lpf (NONE SEEN); BACTERIA MODERATE /hpf (NONE SEEN); EPITHELIAL CELLS 0-5 /hpf (0-5); RED CELLS - URINE 0-5 /hpf (0-5); WHITE CELLS - URINE 0-5 /hpf (0-5)
[2018-11-17] MEDS ORDERED: CARAFATE1 G/10 ML PO (05:30)
[2018-11-17] MEDS ORDERED: HUMALOG MIX 75/23 ML SC ×2 (05:32→05:34)
--- NOTE | 2018-11-17 07:49 | NUR ---
RECIEVED REPORT. ALERT AND ORIENTED X4. DAUGHTER AT BEDSIDE. SINUS RHYTHM 97 ON TELEMETRY. DENIES ANY NEEDS AT THIS TIME. CONTINUE PLAN OF CARE AND SAFETY PRECAUTIONS.
--- NOTE | 2018-11-17 10:10 | CN ---
PATIENT NAME:SANDRA BATES MEDICAL RECORD: [id number] : 42 LOCATION:. D.2128 ADMIT DATE: 11/17/18 ACCOUNT: [id number] CONSULTING PHYSICIAN: RONALD KHAN MD REFERRING PHYSICIAN: SABRINA SHARP MD DATE OF CONSULTATION: 11/17/2018 CARDIOLOGY CONSULT ADMITTING DIAGNOSES: 1. Unstable angina. 2. Coronary artery disease. 3. Previous percutaneous transluminal coronary angioplasty stent. 4. Shortness of breath, dyspnea on exertion. 5. Pneumonia. 6. Abnormal ECG. 7. Hypertension. 8. Hyperlipidemia. 9. Diabetes. HISTORY OF PRESENT ILLNESS: Mrs. Bates has a past history of coronary artery disease, previous stenting approximately 6 years ago. At that time, she was told she had another blockage that was approximately 70%. She has been having chest pain over the past month that increased dramatically over the past 3-4 days. She became short of breath. Just yesterday, she developed a cough with minimal sputum production. Her chest pain is like that of her previous anginal chest discomfort. She does not have the chest pain with cough. She has the chest pain with exertion. Her troponin is normal. Her EKG; however, is abnormal and suggests a minimal ST elevation inferiorly compatible with acute inferior myocardial infarction. Serial EKGs with no change. She has continued to have the episodes of chest pain since being admitted. She is on IV antibiotics. PHYSICAL EXAMINATION: CONSTITUTIONAL/GENERAL APPEARANCE: Well nourished, well developed, appears stated age. EYES: Lids and conjunctivae noninjected. No discharge. No pallor. ENT: Lips within normal limit. No cyanosis. No pallor. NECK: Carotid arteries, bilateral normal upstroke. No bruits. No thrills. No jugular venous pressure or distention. CERVICAL LYMPH NODES: Nontender. Nonenlarged. THYROID: Not enlarged. No nodules. CARDIOVASCULAR: Precordial exam, nondisplaced. No heaves or pericardial thrills. Rate and rhythm, regular. Heart sounds, normal S1, normal S2. No S3, no gallop, no rub. Systolic murmur, not heard. Diastolic murmur, not heard. RESPIRATORY: Respiratory effort, unlabored. Normal curvature. No thoracic deformity. No chest wall tenderness. Percussion, resonant. Auscultation, clear. No wheezes, no rales, no rhonchi. ABDOMEN: Soft, nondistended, nontender. No abdominal pain, no vomiting and normal appetite. MUSCULOSKELETAL: No joint tenderness, normal gait, normal tone. SKIN: Warm and dry. OVERALL IMPRESSION: Chest pain compatible with unstable angina in a patient with a past history of known coronary disease, hypertension, hyperlipidemia, CONSULT REPORT [id number] BATESSANDRA E diabetes with an abnormal ECG suggestive of ongoing ischemia and possibly acute injury. IMPRESSION: At this time, we will treat her with IV antibiotics for the pneumonia. Increase her beta blockade and proceed with coronary angiography. TRANSINT:[id number] Voice Confirmation ID: [id number] DOCUMENT ID: [id number] RONALD KHAN MD at 1010 CC: [id number] DICTATION DATE: 11/17/18811 ELECTRONIC IMAGER: 11/17/18 0859 ADM IN [facility] [address] [place] [id number]
[2018-11-17 10:16] LABS: CREATINE KINASE 14 UL (21-215); TROPONIN-I < 0.017 ng/mL (0.000-0.060)
--- NOTE | 2018-11-17 10:18 | NUR ---
ALERT AND ORIENTED X4. SITTING UP IN BED. CONSENTS FOR BUSINESS OPERATIONS COORDINATOR SIGNED ON CHART. INITIATE NPO UNTIL AFTER PROCEDURE.
[2018-11-17 16:15] LABS: CKMB 0.1 U/L (0.0-3.6); CREATINE KINASE 19 UL (21-215); PRO BNP 3010 pg/mL (0-450); TROPONIN-I < 0.017 ng/mL (0.000-0.060)
--- NOTE | 2018-11-17 19:15 | NUR ---
PT BACK FROM RESEARCH TECHNOLOGIST, BILAT RADIAL PULSE PALP +2. PT AWAKE BUT DROWSY BUT ABLE TO ANSWER QUESTIONS. FAMILY AT BEDSIDE. NO SIGNS OF DISTRESS. NO C/O PAIN. CL IN REACH, BED IN LOWEST POSITION. CONT WITH POC.
[2018-11-17 21:49] LABS: CKMB 0.1 U/L (0.0-3.6); CREATINE KINASE 55 UL (21-215)
[2018-11-17 21:51] LABS: TROPONIN-I < 0.017 ng/mL (0.000-0.060)
[2018-11-18] VITALS: BP 117/57
[2018-11-18 04:00] VITALS: BP 107/54
[2018-11-18 05:59] LABS: BASOPHILS 0.2 % (0-2); EOSINOPHILS 1.1 % (0-7); HEMATOCRIT 37.7 % (36.0-48.0); HEMOGLOBIN 12.1 g/dL (12-16); IMMATURE GRANULOCYTES 0.5 % (0-5); LYMPHOCYTES 15.5 % (15-50); MCHC 32.1 g/dL (31.0-37.0); MCV 93.3 fL (80.0-100.0); MEAN PLATELET VOLUME 11.5 fL (7.4-10.4); MONOCYTES 11.7 % (2-11); PLATELET COUNT 229 10x3/uL (130-400); RBC 4.04 10x6/uL (4.00-5.40); RDW 15.1 % (11.5-14.5)
[2018-11-18 06:30] LABS: WBC 11.6 10x3/uL (4.8-10.8)
[2018-11-18 06:36] LABS: ANION GAP 11.9 mmol/L (8-16); BILIRUBIN - TOTAL 0.3 mg/dL (0.2-1.3); CALCIUM 8.5 mg/dL (8.5-10.1); CARBON DIOXIDE 27.8 mmol/L (21.0-32.0); CREATININE - SERUM 1.9 mg/dL (0.6-1.3); MAGNESIUM - SERUM 1.4 mg/dL (1.8-2.4); POTASSIUM - SERUM 4.7 mmol/L (3.5-5.1); PROTEIN - SERUM 6.1 g/dL (6.4-8.2)
[2018-11-18 06:40] LABS: ALBUMIN 2.2 g/dL (3.4-5.0)
[2018-11-18 08:00] VITALS: BP 90/54
--- NOTE | 2018-11-18 09:05 | NUR ---
AM MEDS GIVEN AT THIS TIME. HELD METOPROLOL FOR LOW BP. PHYSICAL THERAPY AT BEDSIDE, TO ASSESS PT. PT A/O X4, RESP EVEN AND NONLABORED ON RA. RT AC IV SL. PT DENIES ANY NEEDS AT THIS TIME. CALL LIT IN REACH, NAD NOTED, WILL CONTINUE PLAN OF CARE.
--- NOTE | 2018-11-18 11:32 | NUR ---
BLOOD SUGAR OF 356, 10UNITS OF INSULIN GIVEN PER S/S. PT RESTING COMFORTABLY IN BED, DENIES ANY NEEDS AT THIS TIME. CALL LIGHT IN REACH, FAMILY AT BEDSIDE,NAD NOTED, WILL CONITNUE TO MONITOR.
[2018-11-18 12:00] VITALS: BP 113/67
[2018-11-18 12:50] VITALS: Ht 157.5 cm; Wt 87.7 kg
--- NOTE | 2018-11-18 13:07 | NUR ---
RT AC IV LEAKING, D/C IV WITH CATHETER TIP INTACT. PT DID NOT WANT ME TO START IV AT THIS TIME. WANTS TO WAIT UNTIL DOCTOR ROUNDS TO SEE IF IV ANTIBIOTICS CAN BE CHANGED TO PO.
[2018-11-18 16:00] VITALS: BP 102/51
--- NOTE | 2018-11-18 16:48 | NUR ---
NEW 22G IV STARTED TO RT FA X2 STICKS. RESPOSITIONED PT IN BED, PT DENIES ANY NEEDS AT THIS TIME. CALL LIGHT IN REACH, DAUGHTER AT BEDSIDE, NAD NOTED.
--- NOTE | 2018-11-18 18:50 | NUR ---
EVENING ROUNDS COMPLETE, PT LAYING IN BED, FAMILY AT BEDSIDE. NO SIGNS OF DISTRESS, AAOX4. PT DENIES ANY PAIN AT THIS TIME. CL IN REACH, BED IN LOWEST POSITION. CONT WITH POC.
[2018-11-18 19:52] VITALS: BP 95/50
[2018-11-19] VITALS: BP 112/61
[2018-11-19 04:00] VITALS: BP 97/52
[2018-11-19 05:58] LABS: BASOPHILS 0.2 % (0-2); EOSINOPHILS 3.7 % (0-7); HEMATOCRIT 35.1 % (36.0-48.0); HEMOGLOBIN 11.2 g/dL (12-16); IMMATURE GRANULOCYTES 0.3 % (0-5); MCH 29.7 pg (26.0-34.0); MCHC 31.9 g/dL (31.0-37.0); MCV 93.1 fL (80.0-100.0); MEAN PLATELET VOLUME 11.4 fL (7.4-10.4); MONOCYTES 8.9 % (2-11); NEUTROPHILS 72.9 % (40-80); PLATELET COUNT 234 10x3/uL (130-400); RBC 3.77 10x6/uL (4.00-5.40); RDW 14.7 % (11.5-14.5); WBC 10.9 10x3/uL (4.8-10.8)
[2018-11-19 06:20] LABS: ANION GAP 11.6 mmol/L (8-16); BILIRUBIN - TOTAL 0.15 mg/dL (0.2-1.3); CALCIUM 8.8 mg/dL (8.5-10.1); CARBON DIOXIDE 27.4 mmol/L (21.0-32.0); CREATININE - SERUM 1.9 mg/dL (0.6-1.3); MAGNESIUM - SERUM 1.6 mg/dL (1.8-2.4); PROTEIN - SERUM 5.9 g/dL (6.4-8.2)
--- NOTE | 2018-11-19 07:12 | NUR ---
REPORT RECEIVED. WILL CONTINUE WITH POC. PT CURRENTLY LYING SEMI FOWLERS. CALL LIGHT W/I REACH. PT IS RESTING AT THIS TIME. FAMILY AT BEDSIDE. RR EVEN AND UNLABORED ON 2L 02. R.FOR PIV IS SALINE LOCKED. NO S/S OF DISTRESS NOTED. PT DENIES ANY NEEDS. WILL CTM.
[2018-11-19 08:00] VITALS: BP 116/48
[2018-11-19 10:10] LABS: ANA REFLEX - ANTICHROMATIN ABS <0.2 AI (0.0-0.9); ANA REFLEX - CENTROMERE B ABS <0.2 AI (0.0-0.9); ANA REFLEX - DBL STRANDED DNA 1 IU/mL (0-9); ANA REFLEX - DIRECT Positive (Negative); ANA REFLEX - JO-1 AB <0.2 AI (0.0-0.9); ANA REFLEX - RNP ANTIBODIES 2.3 AI (0.0-0.9); ANA REFLEX - SCL-70 <0.2 AI (0.0-0.9); ANA REFLEX - SJOGRENS AB SSA <0.2 AI (0.0-0.9); ANA REFLEX - SJOGRENS AB SSB <0.2 AI (0.0-0.9); ANA REFLEX - SMITH AB <0.2 AI (0.0-0.9)
[2018-11-19 12:00] VITALS: BP 120/42
--- NOTE | 2018-11-19 14:00 | NUR ---
I have reviewed this patient and I concur with the Shift Assessment completed by the Licensed Practical Nurse today this shift.
[2018-11-19 16:18] VITALS: BP 105/52
--- NOTE | 2018-11-19 19:00 | NUR ---
ROUNDS COMPLETED. VSS, AAOX3, NO S/S OF DISTRESS. ALTHOUGH PT C/O FEELING "DIFFERENT" SHE THINKS IT MIGHT BE HER HER BLOOD SUGAR, FSBS CHECKED, AND IT WAS 411. WILL ADMINISTER INSULIN PER SLIDING SCALE. PT ALSO C/O HEADACHE A 11/10. PRN PO 650MG TYLENOL GIVEN AT THIS TIME. PT VOICED THANKS. PT DENIES ANY FURTHER NEEDS AT THIS THIS TIME. WILL CPOC. CL WITHIN REACH, BED IN LOW, SR UP X2.
--- NOTE | 2018-11-19 19:21 | NUR ---
NOTIFIED NANCI TOVAR ABOUT PT'S FSBS OF 411. HE STATES HE WILL ORDER SOME STAT LABS AND "WE WILL GO FROM THERE." PT IN NO DISTRESS AT THIS TIME.
[2018-11-19 20:00] VITALS: BP 137/49
[2018-11-19 20:41] LABS: CALC OSMOLALITY 301 mosm/kg (275-300); CARBON DIOXIDE 28.3 mmol/L (21.0-32.0); CHLORIDE - SERUM 103 mmol/L (98-107); CREATININE - SERUM 2.1 mg/dL (0.6-1.3); POTASSIUM - SERUM 5.2 mmol/L (3.5-5.1); SODIUM 137 mmol/L (136-145); UREA NITROGEN 42 mg/dL (7-18); eGFR NON AFRICAN AMERICAN 24 mL/min (90-120)
[2018-11-19 20:43] LABS: GLUCOSE 405 mg/dL (74-106); KETONE - SERUM NEGATIVE (NEGATIVE)
[2018-11-20] VITALS: BP 116/45
[2018-11-20 04:00] VITALS: BP 113/46
[2018-11-20 06:41] LABS: BASOPHILS 0.2 % (0-2); EOSINOPHILS 5.1 % (0-7); HEMATOCRIT 35.6 % (36.0-48.0); HEMOGLOBIN 11.5 g/dL (12-16); IMMATURE GRANULOCYTES 0.4 % (0-5); LYMPHOCYTES 12.3 % (15-50); MCH 30.3 pg (26.0-34.0); MCHC 32.3 g/dL (31.0-37.0); MCV 93.7 fL (80.0-100.0); MEAN PLATELET VOLUME 11.6 fL (7.4-10.4); MONOCYTES 8.5 % (2-11); NEUTROPHILS 73.5 % (40-80); PLATELET COUNT 264 10x3/uL (130-400); RDW 15.1 % (11.5-14.5); WBC 10.3 10x3/uL (4.8-10.8)
[2018-11-20 06:54] LABS: ALBUMIN 2.2 g/dL (3.4-5.0); ANION GAP 11.3 mmol/L (8-16); BILIRUBIN - TOTAL 0.23 mg/dL (0.2-1.3); CALCIUM 9.4 mg/dL (8.5-10.1); CARBON DIOXIDE 28.8 mmol/L (21.0-32.0); CREATININE - SERUM 1.9 mg/dL (0.6-1.3); MAGNESIUM - SERUM 1.7 mg/dL (1.8-2.4); POTASSIUM - SERUM 5.1 mmol/L (3.5-5.1); PROTEIN - SERUM 5.4 g/dL (6.4-8.2)
--- NOTE | 2018-11-20 07:45 | NUR ---
ASSESSMNET DONE. DENIES NEEDS
[2018-11-20 08:16] VITALS: BP 131/72
--- NOTE | 2018-11-20 10:38 | NUR ---
I have reviewed this patient and I concur with the Shift Assessment completed by the Licensed Practical Nurse today this shift.
--- NOTE | 2018-11-20 12:05 | NUR ---
Nutrition Follow-up: Good appetite/PO intake. Diet: Diabetic PO intake: 92% avg x 6 meals Wt: 193# Last BM: 11/19 Labs noted: Glu 186 Meds noted: Humalog, MagOx May consider cardiac carb consistent diet. RD following.
[2018-11-20 12:44] VITALS: BP 122/68
[2018-11-20 16:22] VITALS: BP 111/81
[2018-11-20] MEDS ORDERED: TOPROL XL25 MG PO (17:49)
[2018-11-20] MEDS ORDERED: ZITHROMAX250 MG PO (17:51)
[2018-11-20] MEDS ORDERED: OMNICEF300 MG PO (17:51)
--- NOTE | 2018-11-20 19:23 | NUR ---
DC INSTRUCTION COMPLETED. PT AND DAUGHTER VOICED UNDERSTANDING. PIV REMOVED CATH TIP INTACT. TELE REMOVED AND RETURNED TO JOINTER MACHINE OPERATOR. ALL PERSONAL BELONGING SENT HOME WITH PT'S DAUGHTER. PT WHEELED DOWNSATAIRS TOP FRONT ENTRACE. PT DC'D HOME.
--- NOTE | 2018-11-23 09:02 | MORECARE ---
CASE MANAGEMENT DISCHARGE SUMMARY PATIENT: SANDRA BATES UNIT: [id number] ADM DATE: 11/17/18 AGE: 78 : 42 SEX: F ROOM/BED: D.2784 AUTHOR: MARILEE OAKES PHYSICIAN: REFERRING PHYSICIAN: SABRINA SHARP MD DATE OF SERVICE: 11/23/18 Discharge Plan Patient Name: SANDRA BATES [facility] [facility] 1940 Planned Disposition: Home Anticipated Discharge Date: 11/20/18 Discharge Date: 11/20/2018 Expected LOS: 3 Initial Reviewer: [email or web address] Initial Review Date: 11/23/2018 Generated: 11/23/18 10:01 am Patient Name: SANDRA BATES Page [id number] at 0902 All edits/amendments must be made on the electronic document DICTATION DATE: 11/23/18900 SCHEDULING ADMINISTRATOR: DEWEY 11/23/18900 RPT#: [id number] DC DATE:11/20/18 STATUS: DIS IN [facility] [address] [place] [address] END OF REPORT
--- NOTE | 2018-11-24 13:38 | EC ---
PATIENT:SANDRA BATES DATE OF SERVICE: 11/17/18 SEX: F MEDICAL RECORD: [id number] DATE OF : 42 LOCATION:D. D.212 AGE OF PATIENT: 78 ADMISSION DATE: 11/17/18 REFERRING PHYSICIAN: INTERPRETING PHYSICIAN: RONALD WALKER MD ECHOCARDIOGRAM REPORT ECHO CHARGES 4 ECHO COMPLETE Date: 11/17/18 CLINICAL DIAGNOSIS: CHEST PAIN ECHOCARDIOGRAPHIC MEASUREMENTS (adult normal given) AC root (d.<3.7cm) 2.4 cm LV Septum d (<1.2 cm> 1.2 cm Valve Excursion 1.4 cm LV Septum (systole) 1.4 cm Left Atria (s.<4.0cm> 3.9 cm LVPW d(<1.2cm) 1.6 cm RV (d.<2.3cm) 2.6 cm LVPW (sytole) 1.8 cm LV diastole(<5.6CM) 4.6 cm MV E-F(>70mm/sec) cm LV systole 3.4 cm LVOT Diameter 1.8 cm MV exc.(>10mm) cm Est.ejection fraction (50-75%) % DOPPLER: LVIT cm/sec A 84.0 cm/sec E 71.0 cm/sec LA cm/sec RVSP 20.2 mmHg LVOT 122 cm/sec AOP1/2T m/s Asc. Ao 172 cm/sec RVOT 88 cm/sec RA cm/sec PA 90 cm/sec AV Gradient Peak 11.9 mmHg AV Mean 7.1 mmHg AV Area 1.7 cm MV Gradient Peak 3.8 mmHg MV Mean 2.2 mmHg MV Area cm COMMENTS: Memorandum Statement Clerk: Martin BAILEY Manager Lsw: 1 Dr. Walker TAPE# PACS Pericardial Effusion N DATE OF SERVICE: PROCEDURE: Echocardiogram. FINDINGS: 1. Left ventricular chamber size is within normal limits. Left ventricular systolic function is normal at 50%. 2. Left atrium, right atrium, and right ventricular chamber sizes are within normal limits. 3. Valvular structures have normal structure and motion. ECHOCARDIOGRAM REPORT [id number] SANDRA BATES 4. Doppler interrogation reveals no significant valvular insufficiency or stenosis and pulmonary systolic pressure is estimated at 20 mmHg. 5. No evidence of pericardial effusion or left ventricular thrombus. TRANSINT:[id number] Voice Confirmation ID: [id number] DOCUMENT ID: [id number] RONALD WALKER MD at 1338 CC: [id number] DICTATION DATE: 11/17/18 1207 BUILDING COMPONENTS DESIGNER: 11/17/18 1241 DIS IN 11/20/18 [place] [id number] [place] [id number]
--- NOTE | 2018-11-24 13:38 | OP ---
PATIENT NAME: SANDRA BATES MEDICAL RECORD: [id number] :42 LOCATION:D.M2 D.2128 ADMISSION DATE:11/17/18 SURGEON: RONALD KHAN MD DATE OF OPERATION: 11/17/2018 PROCEDURES: 1. PTCA stent left circumflex. 2. Left heart catheterization. 3. Selective coronary angiography. 4. Left ventriculogram. 5. IFR. INDICATION: Unstable angina and coronary artery disease. PROCEDURE IN DETAIL: After informed consent was obtained and after detailed description of risks, benefits as well as alternative therapies, the patient elected to proceed with angiogram and angioplasty. The right radial area was prepped and draped in normal sterile fashion. Right radial artery was cannulated via modified Seldinger technique with placement of 6-Uzbek sheath. All catheters exchanged through this sheath. FINDINGS: The left ventriculogram was performed in standard 30-degree SOFIA view, reveals good cardiac wall motion, ejection fraction is 60%. SELECTIVE CORONARY ANGIOGRAPHY: 1. Left main is with no significant angiographic disease. 2. Left anterior descending has moderate irregularities, but no flow-limiting stenosis. 3. The left circumflex has 85% stenosis in the mid vessel. An IFR is abnormal. 4. Right coronary is small, nondominant with diffuse disease. PTCA STENT OF THE LEFT CIRCUMFLEX: The stent used was a 2.5 x 22mm, [place]. Result was 0% residual stenosis. OVERALL IMPRESSION: Successful percutaneous transluminal coronary angioplasty stent of the left circumflex going from 85% initial stenosis to 0% residual. TRANSINT:[id number] Voice Confirmation ID: [id number] DOCUMENT ID: [id number] RONALD KHAN MD at 1338 CC: [id number] DICTATION DATE: 11/17/181899 WINTER SPORTS MANAGER: 11/17/182134 DIS IN 11/20/18 [facility] [address] [place] [address]
== END 2018-11-20 19:25 | disposition home or self-care (01) | DRG 246 ==
LOC: D.ER 02:49 → D.M2 04:52
PROVIDERS: Family Medicine; Internal Medicine Interventional Cardiology; Internal Medicine Pulmonary Disease; ADMIT Emergency Medicine; ATTEND Emergency Medicine
PROC: B2111ZZ Fluoroscopy of Multiple Coronary Arteries using Low Osmolar Contrast (ICD-10-PCS; 2018-11-17)
PROC: B2151ZZ Fluoroscopy of Left Heart using Low Osmolar Contrast (ICD-10-PCS; 2018-11-17)
PROC: 4A033BC Measurement of Arterial Pressure, Coronary, Percutaneous Approach (ICD-10-PCS; 2018-11-17)
PROC: 027034Z Dilation of Coronary Artery, One Artery with Drug-eluting Intraluminal Device, Percutaneous Approach (ICD-10-PCS; principal; 2018-11-17 18:30)
PROC: 4A023N7 Measurement of Cardiac Sampling and Pressure, Left Heart, Percutaneous Approach (ICD-10-PCS; 2018-11-17 18:30)
DX: I25.110 Atherosclerotic heart disease of native coronary artery with unstable angina pectoris (principal); J96.01 Acute respiratory failure with hypoxia; J69.0 Pneumonitis due to inhalation of food and vomit; J15.6 Pneumonia due to other Gram-negative bacteria; J13 Pneumonia due to Streptococcus pneumoniae; N17.9 Acute kidney failure, unspecified; J98.11 Atelectasis; F32.9 Major depressive disorder, single episode, unspecified; M19.90 Unspecified osteoarthritis, unspecified site; E11.65 Type 2 diabetes mellitus with hyperglycemia; R94.31 Abnormal electrocardiogram [ECG] [EKG]; E78.5 Hyperlipidemia, unspecified; K21.9 Gastro-esophageal reflux disease without esophagitis; J32.9 Chronic sinusitis, unspecified; E11.22 Type 2 diabetes mellitus with diabetic chronic kidney disease; I12.9 Hypertensive chronic kidney disease with stage 1 through stage 4 chronic kidney disease, or unspecified chronic kidney disease; N18.9 Chronic kidney disease, unspecified; I48.91 Unspecified atrial fibrillation; M54.2 Cervicalgia; M25.512 Pain in left shoulder; Z87.01 Personal history of pneumonia (recurrent); Z85.43 Personal history of malignant neoplasm of ovary

== ENCOUNTER 2018-12-15 07:48 | Inpatient (IN) | payer MEDICARE, MEDICAID ==
[~2018-12-15] VITALS: Ht 157.5 cm; Wt 79.5 kg
[2018-12-15] VITALS (11 sets, daily range): BP systolic 80–107; BP diastolic 44–63; Ht 157.5 cm; Wt 79.5 kg
[~2018-12-15 07:48] MED LIST changes: +CARAFATE1 G/10 ML PO; +HUMALOG MIX 75/23 ML SC; +HYDROCODON-ACE1 EA10 PO; -NORCO 10-325 TA1 TAB PO; +OMNICEF300 MG PO; +ZITHROMAX250 MG PO
[2018-12-15 08:05] LABS: BASOPHILS 0.1 % (0-2); EOSINOPHILS 1.5 % (0-7); HEMATOCRIT 42.7 % (36.0-48.0); HEMOGLOBIN 13.6 g/dL (12-16); IMMATURE GRANULOCYTES 0.2 % (0-5); LYMPHOCYTES 16.9 % (15-50); MCH 30.6 pg (26.0-34.0); MCHC 31.9 g/dL (31.0-37.0); MEAN PLATELET VOLUME 10.9 fL (7.4-10.4); MONOCYTES 10.5 % (2-11); NEUTROPHILS 70.8 % (40-80); RBC 4.45 10x6/uL (4.00-5.40); RDW 14.2 % (11.5-14.5); WBC 12.8 10x3/uL (4.8-10.8)
[2018-12-15 08:06] LABS: PLATELET COUNT 322 10x3/uL (130-400)
[2018-12-15 08:18] LABS: ALBUMIN 2.6 g/dL (3.4-5.0); ALKALINE PHOSPHATASE 96 U/L (46-116); ALT (SGPT) 12 U/L (10-68); BILIRUBIN - TOTAL 0.24 mg/dL (0.2-1.3); CALC OSMOLALITY 290 mosm/kg (275-300); CALCIUM 9.4 mg/dL (8.5-10.1); CARBON DIOXIDE 30.1 mmol/L (21.0-32.0); CHLORIDE - SERUM 106 mmol/L (98-107); CREATININE - SERUM 1.7 mg/dL (0.6-1.3); GLUCOSE 141 mg/dL (74-106); POTASSIUM - SERUM 5.1 mmol/L (3.5-5.1); SODIUM 142 mmol/L (136-145); UREA NITROGEN 29 mg/dL (7-18); eGFR NON AFRICAN AMERICAN 31 mL/min (90-120)
[2018-12-15] MEDS ORDERED: VITAMIN D31000 UNIT PO (08:27)
[2018-12-15] MEDS ORDERED: FLAXSEED OIL PO (08:28)
[2018-12-15] MEDS ORDERED: MACROBID100 MG PO (08:29)
[2018-12-15] MEDS ORDERED: PROTONIX40 MG PO (08:29)
[2018-12-15] MEDS ORDERED: ZYLOPRIM100 MG PO (08:29)
[2018-12-15 08:30] LABS: CKMB 0.1 U/L (0.0-3.6); CREATINE KINASE 23 UL (21-215); MAGNESIUM - SERUM 1.8 mg/dL (1.8-2.4); TROPONIN-I < 0.017 ng/mL (0.000-0.060)
[2018-12-15] MEDS ORDERED: ZANTAC300 MG PO (08:30)
[2018-12-15] MEDS ORDERED: STOOL SOFTENER (08:30)
[2018-12-15] MEDS ORDERED: ARTHRITIS PAIN RELIE (08:30)
[2018-12-15] MEDS ORDERED: IPRAT-ALBUT 0.5-3 ML UPD (08:30)
[2018-12-15] MEDS ORDERED: VOLTAREN100 GM TOPICAL (08:31)
[2018-12-15 08:34] LABS: APTT 27.2 SECONDS (22.8-39.4); INR 1.07 (0.85-1.17); PROTIME 13.4 SECONDS (11.6-15.0)
[2018-12-15 09:23] LABS: CKMB 0.3 U/L (0.0-3.6); CREATINE KINASE 16 UL (21-215)
[2018-12-15 09:25] LABS: TROPONIN-I < 0.017 ng/mL (0.000-0.060)
--- NOTE | 2018-12-15 11:03 | NUR ---
STOP TIME FOR CARDIZEM 1105 WHEN PT TAKEN TO FLOOR
--- NOTE | 2018-12-15 11:42 | NUR ---
ARRIVE TO ROOM VIA BED FROM ER. CARDIZEM DRIP AND NS DISCONNECTED AND PLACED ON TABLE. SIDERAILS LEFT DOWN. DAUGHTER AT BEDSIDE. ALERT AND ORIENTED X4. GAIT UNSTEADY. CARDIZEM DRIP RESTARTED INITIALLY ORDERED THROUGH RT AC IV. 98 CONTROLLED AFIB ON TELEMETRY. SKIN INTACT. SCDS ON. CONTINUE ADMISSION PROCESS AND SAFETY PRECAUTIONS. TWO SIDERAILS UP WITHOUT DIFFICULTY. BED LOCKED AND LOW. CALL LIGHT IN REACH.
[2018-12-15 15:02] LABS: CKMB 0.2 U/L (0.0-3.6); CREATINE KINASE 20 UL (21-215); TROPONIN-I < 0.017 ng/mL (0.000-0.060)
--- NOTE | 2018-12-15 18:15 | NUR ---
ALERT AND ORIENTED X4. SITTING UP IN BED. FAMILY AT BEDSIDE. CARDIZEM DRIP INFUSING ORDERED. UNCONTROLLED AFIB 104 ON TELEMETRY. DENIES SOB OR PAIN. CONTINUE PLAN OF CARE AND SAFETY PRECAUTIONS.
--- NOTE | 2018-12-15 19:36 | NUR ---
ASSESSMENT COMPLETE, PT IN BED RESTING ON RIGHT SIDE. A&O. RESPERATIONS EVEN ON 02 AT 2 LITERS VIA NC. IV TO RIGHT AC WITH NS INFUSING AT 100 CC/HR AND CARDIZEM AT 15. PT C/O PAIN, RATES PAIN AT A 10 ON PAIN SCALE. TYLENOL GIVEN AT PT REQUEST. DISCUSSED WITH PT AND PTS DAUGHTER ABOUT POSSIBLE CARDIO VERSION IN AM, AND THAT PT NEEDED TO BE NPO AFTER MN, PT AND DAUGHTER STATED UNDERSTANDING.
[2018-12-15 20:52] LABS: CKMB 0.3 U/L (0.0-3.6); CREATINE KINASE 13 UL (21-215); TROPONIN-I < 0.017 ng/mL (0.000-0.060)
[2018-12-16] VITALS: BP 147/77
--- NOTE | 2018-12-16 03:35 | NUR ---
UP WITH ASSIST TO BR.
[2018-12-16 04:00] VITALS: BP 109/48
--- NOTE | 2018-12-16 04:12 | NUR ---
NOTIFIED BY CUSTOMER SERVICE DISPATCHER THAT PT HAS CONVERTED TO SR WITH A RATE OF 63.
[2018-12-16 06:04] LABS: BASOPHILS 0.2 % (0-2); EOSINOPHILS 3.3 % (0-7); HEMATOCRIT 37.8 % (36.0-48.0); HEMOGLOBIN 11.5 g/dL (12-16); IMMATURE GRANULOCYTES 0.2 % (0-5); LYMPHOCYTES 18.3 % (15-50); MCH 29.6 pg (26.0-34.0); MCHC 30.4 g/dL (31.0-37.0); MCV 97.4 fL (80.0-100.0); MEAN PLATELET VOLUME 11.2 fL (7.4-10.4); PLATELET COUNT 326 10x3/uL (130-400); RBC 3.88 10x6/uL (4.00-5.40); RDW 14.6 % (11.5-14.5)
[2018-12-16 06:34] LABS: ALBUMIN 2.2 g/dL (3.4-5.0); ANION GAP 10.8 mmol/L (8-16); BILIRUBIN - TOTAL 0.25 mg/dL (0.2-1.3); CALCIUM 8.5 mg/dL (8.5-10.1); CREATININE - SERUM 1.5 mg/dL (0.6-1.3); POTASSIUM - SERUM 4.8 mmol/L (3.5-5.1); PROTEIN - SERUM 6.1 g/dL (6.4-8.2)
--- NOTE | 2018-12-16 08:08 | NUR ---
ASSESSMENT DONE. DENIES NEEDS
[2018-12-16 09:06] VITALS: BP 82/52
--- NOTE | 2018-12-16 12:25 | NUR ---
I have reviewed this patient and I concur with the Shift Assessment completed by the Licensed Practical Nurse today this shift.
[2018-12-16] MEDS ORDERED: BETAPACE 120 M120 MG PO (14:38)
[2018-12-16] MEDS ORDERED: VIBRAMYCIN 100100 MG PO (14:57)
--- NOTE | 2018-12-16 15:41 | NUR ---
PER DR ERIN UGARTE CAN BE DISCHARGED.
--- NOTE | 2018-12-16 15:48 | NUR ---
UPON ADMISSION PATIENT HAS NOT RECEIVED A FLU SHOT. WHEN ASKED, FAMILY STATES THAT "THEY ARE COMING OUT TO THE HOUSE TO GIVE HER ONE".
--- NOTE | 2018-12-16 16:21 | MORECARE ---
CASE MANAGEMENT DISCHARGE SUMMARY PATIENT: ANTONINA BATES UNIT: [id number] ADM DATE: 12/15/18 AGE: 78 : 41 SEX: F ROOM/BED: D.8734 AUTHOR: MARILEE OAKES PHYSICIAN: REFERRING PHYSICIAN: SHANTI CAO MD DATE OF SERVICE: 12/16/18 Discharge Plan Patient Name: ANTONINA BATES [facility] [facility] 1940 Planned Disposition: Home Anticipated Discharge Date: 12/16/18 Discharge Date: Expected LOS: 1 Initial Reviewer: [email or web address] Initial Review Date: 12/16/2018 Generated: 12/16/18 5:21 pm Coverage Notice Reviewer: [id number] Mayra Gunter Notice Issued Date-Time: 12/15/2018 10:45 Notice Type: Medicare Outpatient Observation Notice Notice Delivered To: Patient Relationship to Patient: Self Breaker Up Name: Antonina Bates Delivery Method: HAND - Hand Delivered Connie Days: Prior Verbal Notification: Recipient Understood Notice: Yes Recipient Signature: Yes Med Rec Note Co-signed by Attending: Coverage Notice Comment: GRAMAJO delivered to and signed by patient. Patient Name: ANTONINA BATES Page [phone] at 1621 All edits/amendments must be made on the electronic document DICTATION DATE: 12/16/181620 PRESALES SENIOR SPECIALIST: DEWEY 12/16/181620 RPT#: [id number] UT DATE: STATUS: ADM IN [facility] [address] [place] [address] END OF REPORT
--- NOTE | 2018-12-16 16:27 | NUR ---
[facility] CALLED AND NEEDING TO GET AHOLD OF DR BUCKLEY TO CHANGE SOME MEDICATIONS THEY ARE INTERACTING WITH PRESCIPTIONS. I PAGED VIJI HANKINS APN AND PASSED THIS INFO ALONG WITH THE PHARMACY NUMBER FOR THEM TO CALL.
--- NOTE | 2018-12-16 16:31 | MORECARE ---
CASE MANAGEMENT DISCHARGE SUMMARY PATIENT: ANTONINA BATES UNIT: [id number] ADM DATE: 12/15/18 AGE: 78 : 41 SEX: F ROOM/BED: D.6160 AUTHOR: CHAMP,DOC PHYSICIAN: REFERRING PHYSICIAN: SHANTI CAO MD DATE OF SERVICE: 12/16/18 Discharge Plan Patient Name: ANTONINA BATES Facility: [facility]:[place] : 1940 Planned Disposition: Home Anticipated Discharge Date: 12/16/18 Discharge Date: Expected LOS: 1 Initial Reviewer: [email or web address] Initial Review Date: 12/16/2018 Generated: 12/16/18 5:30 pm DCPIA - Discharge Planning Initial Assessment Updated by [email or web address]: Evan Wilson on 12/16/18 4:24 pm * Is the patient Alert and Oriented? Yes * How many steps to enter\exit or inside your home? * PCP DR. ALCAZAR * Pharmacy [facility] * Preadmission Environment Home with Family * ADLs Partial Dependent * Partial ADLs (Assistance needed) Ambulation Bathing Dressing Medication Management Toileting Transfers * Equipment Bedside [facility] Hospital Bed Nebulizer Oxygen Rolling Walker Shower Chair Wheelchair * Other Equipment HOME OXYGEN ONLY. PULSE OXIMETRY METER, BLOOD PRESSURE METER LIFT CHAIR PT USES [employer] AND [facility]OST RECENTLY [employer] * List name and contact numbers for known caregivers / representatives who currently or will assist patient after discharge: KATERINA SR, DAUGHTER / PAID CAREGIVER, * Verbal permission to speak to the caregivers and representatives has been obtained from the patient. Yes * Community resources currently utilized Private Duty Care * Please name any agencies selected above. [facility], 69 HOURS PAID TO DAUGHTER PER WEEK. * Additional services required to return to the preadmission environment? No * Can the patient safely return to the preadmission environment? Yes * Has this patient been hospitalized within the prior 30 days at any hospital? Yes Coverage Notice Reviewer: [id number] Mayra Gunter Notice Issued Date-Time: 12/15/2018 10:45 Notice Type: Medicare Outpatient Observation Notice Notice Delivered To: Patient Relationship to Patient: Self [facility] Lab Technician Name: Antonina Bates Delivery Method: HAND - Hand Delivered Connie Days: Prior Verbal Notification: Recipient Understood Notice: Yes Recipient Signature: Yes Med Rec Note Co-signed by Attending: Coverage Notice Comment: ROX delivered to and signed by patient. Last DP export: 12/16/18 3:21 Patient Name: ANTONINA BATES Page [phone] at 1631 All edits/amendments must be made on the electronic document DICTATION DATE: 12/16/18 163 WILDLIFE REFUGE SPECIALIST: DEWEY 12/16/18 163 RPT#: [id number] DC DATE: STATUS: ADM IN [facility] [address] [place] [address] END OF REPORT
--- NOTE | 2018-12-16 16:41 | MORECARE ---
CASE MANAGEMENT DISCHARGE SUMMARY PATIENT: ANTONINA BATES UNIT: [id number] ADM DATE: 12/15/18 AGE: 78 : 41 SEX: F ROOM/BED: D.4635 AUTHOR: MARILEE OAKES PHYSICIAN: REFERRING PHYSICIAN: SHANTI CAO MD DATE OF SERVICE: 12/16/18 Discharge Plan Patient Name: ANTONINA BATES Facility: [facility]:[place] : 1940 Planned Disposition: Home Anticipated Discharge Date: 12/16/18 Discharge Date: Expected LOS: 1 Initial Reviewer: [email or web address] Initial Review Date: 12/16/2018 Generated: 12/16/18 5:40 pm Comments DCP- Discharge Planning Updated by [email or web address]: Evan Wilson on 12/16/18 3:[address] Patient Name: ANTONINA BATES Admission Status: Elective Accout number: [id number] Admission Date: 12-15-2018 : 1940 Admission Diagnosis: Attending: SHANTI CAO Current LOS: 1 Anticipated DC Date: 12-16-2018 Planned Disposition: Home Primary Insurance: [facility] MEDICARE SOLUTIONS Discharge Planning Comments: CM MET WITH PT AND DAUGHTER IN ROOM TO DISCUSS DISCHARGE PLANNING AND NEEDS. PT REPORTS LIVING AT HOME INDEPENDENTLY WITH HER "OLD MAN", ANTONINA BATES provided verbal consent to discuss current and ongoing needs with/in the presence of: KATERINA FLORES WHO IS HER CAREGIVER AT HOME. PT'S DAUGHTER IS CAREGIVER FOR 69 HOURS PER MONTH, THROUGH [facility]. PT'S DAUGHTER REPORTS EITHER SHE OR HER (DAUGHTERS) IS THERE, THEY NEVER LEAVE PT HOME ALONE. PT HAS ALL NEEDED MEDICAL EQUIPMENT AT HOME AND USED [employer] AND [facility]OST RECENTLY [employer]. PT HAS NO OTHER OUTSIDE SERVICES ASSISTING IN THE HOME. CM DISCUSSED AVAILABILITY OF HOME HEALTH, REHAB SERVICES AND MEDICAL EQUIPMENT. PT AND DAUGHTER BOTH DENIED DISCHARGE NEEDS, PT'S DAUGHTER IS HERE AND TO PICK PT UP FOR DISCHARGE HOME. LAB COORDINATOR NURSE NOTIFIED. Supervisor Air Conditioning Installer: Evan Wilson DCPIA - Discharge Planning Initial Assessment Updated by [id number]: Evan Wilson on 12/16/18 4:24 pm * Is the patient Alert and Oriented? Yes * How many steps to enter\\exit or inside your home? * PCP DR. ALCAZAR * Pharmacy [facility] * Preadmission Environment Home with Family * ADLs Partial Dependent * Partial ADLs (Assistance needed) Ambulation Bathing Dressing Medication Management Toileting Transfers * Equipment Bedside [employer] Hospital Bed Nebulizer Oxygen Rolling Walker Shower Chair Wheelchair * Other Equipment HOME OXYGEN ONLY. PULSE OXIMETRY METER, BLOOD PRESSURE METER LIFT CHAIR PT USES [employer] AND [employer]OST RECENTLY [employer] * List name and contact numbers for known caregivers / representatives who currently or will assist patient after discharge: KATERINA SR, DAUGHTER / PAID CAREGIVER, * Verbal permission to speak to the caregivers and representatives has been obtained from the patient. Yes * Community resources currently utilized Private Duty Care * Please name any agencies selected above. [facility], 69 HOURS PAID TO DAUGHTER PER WEEK. * Additional services required to return to the preadmission environment? No * Can the patient safely return to the preadmission environment? Yes * Has this patient been hospitalized within the prior 30 days at any hospital? Yes Coverage Notice Reviewer: [id number] Mayra Gunter Notice Issued Date-Time: 12/15/2018 10:45 Notice Type: Medicare Outpatient Observation Notice Notice Delivered To: Patient Relationship to Patient: Self Concrete Analyst Name: Antonina Bates Delivery Method: HAND - Hand Delivered Connie Days: Prior Verbal Notification: Recipient Understood Notice: Yes Recipient Signature: Yes Med Rec Note Co-signed by Attending: Coverage Notice Comment: GRAMAJO delivered to and signed by patient. Last DP export: 12/16/18 3:31 Patient Name: ANTONINA BATES Page 13377 at 1641 All edits/amendments must be made on the electronic document DICTATION DATE: 12/16/18 1640 PHOTOFLASH POWDER MIXER: DEWEY 12/16/18 1640 RPT#: [id number] DC DATE: STATUS: ADM IN [facility] [address] [place] [address] END OF REPORT
--- NOTE | 2018-12-16 16:41 | NUR ---
DC HOME PER PERSONAL CAR
--- NOTE | 2018-12-18 13:28 | CN ---
PATIENT NAME:SANDRA ROWE MEDICAL RECORD: [id number] : 42 LOCATION:D. D.2125 ADMIT DATE: 12/15/18 ACCOUNT: [id number] CONSULTING PHYSICIAN: RONALD KHAN MD REFERRING PHYSICIAN: SHANTI CAO MD DATE OF CONSULTATION: 12/15/2018 CARDIOLOGY CONSULTATION DIAGNOSES: 1. Atrial fibrillation with rapid ventricular response. 2. Shortness of breath. 3. Palpitations. 4. Coronary artery disease. 5. Recent percutaneous transluminal coronary angioplasty stent. 6. Hypertension. 7. Hyperlipidemia. 8. Chronic obstructive pulmonary disease. 9. Smoking history. 10. Insulin-dependent diabetes. HISTORY OF PRESENT ILLNESS: Mrs. Rowe presents with shortness of breath and palpitations, found to be in atrial fibrillation with rapid ventricular response. This started yesterday afternoon to evening. She does not have a history of atrial fibrillation. She recently underwent PTCA stent of the left circumflex. Echocardiogram was overall normal. She is on metoprolol for blood pressure. PHYSICAL EXAMINATION: CONSTITUTIONAL/GENERAL APPEARANCE: Well nourished, well developed, appears stated age. EYES: Lids and conjunctivae noninjected. No discharge. No pallor. ENT: Lips within normal limit. No cyanosis. No pallor. NECK: Carotid arteries, bilateral normal upstroke. No bruits. No thrills. No jugular venous pressure or distention. CERVICAL LYMPH NODES: Nontender. Nonenlarged. THYROID: Not enlarged. No nodules. CARDIOVASCULAR: Precordial exam, nondisplaced. No heaves or pericardial thrills. Rate and rhythm, regular. Heart sounds, normal S1, normal S2. No S3, no gallop, no rub. Systolic murmur, not heard. Diastolic murmur, not heard. RESPIRATORY: Respiratory effort, unlabored. Normal curvature. No thoracic deformity. No chest wall tenderness. Percussion, resonant. Auscultation, clear. No wheezes, no rales, no rhonchi. ABDOMEN: Soft, nondistended, nontender. No abdominal pain, no vomiting and normal appetite. MUSCULOSKELETAL: No joint tenderness, normal gait, normal tone. SKIN: Warm and dry. OVERALL IMPRESSION: Atrial fibrillation with rapid ventricular response. Her troponin is normal. Her EKG with no ST-T changes. I do not think that this is ischemic in nature. We will discontinue the metoprolol, start sotalol 120 mg b.i.d. as well as Eliquis. If she remains in atrial fibrillation despite the p.o. sotalol and IV Cardizem, will proceed with DC cardioversion in the a.m. TRANSINT:[id number] Voice Confirmation ID: [id number] DOCUMENT ID: [id number] CONSULT REPORT [id number] SANDRA ROWE JEFFREY MD at 1328 CC: [id number] DICTATION DATE: 12/15/18 1234 BEAM WORKER: 12/15/18 1250 DIS IN 12/16/18 [facility] [address] [place] [address]
== END 2018-12-16 16:41 | disposition home or self-care (01) | DRG 309 ==
LOC: D.ER 07:48 → D.M2 08:24
PROVIDERS: Family Medicine; ADMIT Emergency Medicine; ATTEND Emergency Medicine
DX: I48.91 Unspecified atrial fibrillation (principal); I25.110 Atherosclerotic heart disease of native coronary artery with unstable angina pectoris; J98.11 Atelectasis; N17.9 Acute kidney failure, unspecified; E78.5 Hyperlipidemia, unspecified; J44.9 Chronic obstructive pulmonary disease, unspecified; E11.22 Type 2 diabetes mellitus with diabetic chronic kidney disease; I12.9 Hypertensive chronic kidney disease with stage 1 through stage 4 chronic kidney disease, or unspecified chronic kidney disease; N18.9 Chronic kidney disease, unspecified; H92.03 Otalgia, bilateral; E11.65 Type 2 diabetes mellitus with hyperglycemia; E86.0 Dehydration; K21.9 Gastro-esophageal reflux disease without esophagitis

== ENCOUNTER → 2019-01-21 09:18 | Outpatient (CLI) | payer MEDICARE, MEDICAID ==
[2018-12-15 13:04] VITALS: BMI 32.1
[~2019-01-21 09:18] MED LIST changes: +ARTHRITIS PAIN RELIE; +BETAPACE 120 M120 MG PO; +FLAXSEED OIL PO; +IPRAT-ALBUT 0.5-3 ML UPD; +MACROBID100 MG PO; +PROTONIX40 MG PO; +STOOL SOFTENER; +VIBRAMYCIN 100100 MG PO; +VITAMIN D31000 UNIT PO; +VOLTAREN100 GM TOPICAL; +ZANTAC300 MG PO; +ZYLOPRIM100 MG PO
== END | disposition home or self-care (01) ==
LOC: D.US 09:18
PROVIDERS: ATTEND Internal Medicine Interventional Cardiology
DX: R42 Dizziness and giddiness (principal)

== ENCOUNTER → 2019-02-11 16:32 | Outpatient (CLI) | payer MEDICARE, MEDICAID ==
[2018-12-15 13:04] VITALS: BMI 32.1
[2019-02-11 17:10] LABS: CHOL - HDL RATIO 5.3 ratio (2.3-4.1); LDL-HDL RATIO 3.1 ratio (1.5-3.5)
== END | disposition home or self-care (01) ==
LOC: D.LABREF 16:32
PROVIDERS: ATTEND Nurse Practitioner Adult Health
DX: I25.10 Atherosclerotic heart disease of native coronary artery without angina pectoris (principal)

== ENCOUNTER → 2019-02-19 08:53 | Outpatient (CLI) | payer MEDICARE, MEDICAID ==
[2018-12-15 13:04] VITALS: BMI 32.1
== END | disposition home or self-care (01) ==
LOC: D.CT 08:53
PROVIDERS: ATTEND Internal Medicine Cardiovascular Disease
DX: I65.29 Occlusion and stenosis of unspecified carotid artery (principal)

== ENCOUNTER 2019-04-23 08:38 | Inpatient (IN) | payer MEDICARE, MEDICAID ==
[~2019-04-23] VITALS: Ht 157.5 cm; Wt 97.7 kg
[~2019-04-23 08:38] MED LIST changes: -STOOL SOFTENER; +STOOL SOFTENER PO
[2019-04-23 10:32] LABS: HEMATOCRIT 45.7 % (36.0-48.0); HEMOGLOBIN 14.2 g/dL (12-16); MCH 30.1 pg (26.0-34.0); MCHC 31.1 g/dL (31.0-37.0); MEAN PLATELET VOLUME 10.8 fL (7.4-10.4); RBC 4.71 10x6/uL (4.00-5.40); RDW 14.9 % (11.5-14.5); WBC 9.5 10x3/uL (4.8-10.8)
[2019-04-23 10:39] LABS: BILIRUBIN NEGATIVE (NEGATIVE); GLUCOSE NEGATIVE (NEGATIVE); KETONE NEGATIVE (NEGATIVE); NITRITE NEGATIVE (NEGATIVE); UROBILINOGEN NORMAL (NORMAL)
[2019-04-23 10:42] LABS: APTT 24.4 SECONDS (22.8-39.4); BACTERIA FEW /hpf (NEGATIVE); EPITHELIAL CELLS 0-5 /hpf (0-5); PROTIME 13.2 SECONDS (11.6-15.0); RED CELLS - URINE NONE SEEN /hpf (0-5); WHITE CELLS - URINE 0-5 /hpf (NEGATIVE)
[2019-04-23 10:49] LABS: ALBUMIN 3.3 g/dL (3.4-5.0); ANION GAP 10.8 mmol/L (8-16); BILIRUBIN - TOTAL 0.33 mg/dL (0.2-1.3); CALCIUM 9.2 mg/dL (8.5-10.1); CREATININE - SERUM 1.7 mg/dL (0.6-1.3); POTASSIUM - SERUM 4.8 mmol/L (3.5-5.1); PROTEIN - SERUM 7.6 g/dL (6.4-8.2)
[2019-04-23] MEDS ORDERED: BETAPACE 120 M120 MG PO (13:38)
[2019-04-23] MEDS ORDERED: PRIMSOL50 MG/5 ML PO (13:45)
[2019-04-23] MEDS ORDERED: FISH OIL 1,0001 CA1 PO (13:45)
[2019-04-26] VITALS (37 sets, daily range): BP systolic 95–151; BP diastolic 36–71; BMI 36.6; BMI 39.8
--- NOTE | 2019-04-26 06:07 | NUR ---
0600-REPORTED BLOOD PRESSURE VARIANCE TO DR. TEAGUE VIA PHONE- RIGHT 157/64 LEFT 133/71
--- NOTE | 2019-04-26 10:17 | NUR ---
PT ARRIVED TO ROOM FROM SURGERY, VSS AND WNL. PT AWAKE AND FOLLOWING COMMANDS. WILL CONT TO FOLLOW POC
--- NOTE | 2019-04-26 11:05 | NUR ---
PT HR FLUCTUATING BETWEEN 38 TO 50 BPM. QUETA ARNOLD HERE AND MADE AWARE, NO NEW ORDERS RECIEVED AT THIS TIME, WILL CONT TO FOLLOW POC
--- NOTE | 2019-04-26 12:00 | NUR ---
FAMILY AT BEDSIDE. PT FOLLOWING COMMANDS. VSS AND WNL. NO SIGNS OF DISTRESS NOTED. BED ALARM ON. WILL CONT TO FOLLOW POC
--- NOTE | 2019-04-26 13:00 | NUR ---
PT RESTING IN BED, VSS. PT ANSWERS ALL QUESTIONS. NO SIGNS OF DISTRESS NOTED. BED ALARM ON. DENIES ANY FURTHER NEEDS AT THIS TIME, WILL CONT TO FOLLOW POC
--- NOTE | 2019-04-26 15:00 | NUR ---
PT RESTING IN BED, VSS AND WNL. SIPS OF WATER GIVEN AND PT TOLERATED WELL. DENIES ANY FURTHER NEEDS AT THIS TIME, BED ALARM ON. VSS. DENIES ANY NEEDS AT THIS TIME, WILL CONT TO FOLLOW POC
--- NOTE | 2019-04-26 17:00 | NUR ---
PT RESTING IN BED, VSS AND WNL. BED ALARM ON. NO SIGNS OF DISTRESS NOTED. ICE PACK ON INCISION. DENIES ANY NEEDS AT THIS TIME, WILL CONT TO FOLLOW POC
--- NOTE | 2019-04-26 19:00 | NUR ---
REPORT RECEIVED CARE ASSUMED ASSESSMENT DONE SEE FLOW SHEET VSS. ICE PACK APPLIED TO RIGHT NECK. IS 500.
--- NOTE | 2019-04-26 19:52 | NUR ---
DR TEAGUE INFORMED OF PT STATUS. ORDERS RECEIVED. VSS WILL CONTINUE TO MONITOR.
--- NOTE | 2019-04-26 23:02 | NUR ---
2100 MEDS GIVEN PER MAR. NO SIGNS OF ACUTE DISTRESS NOTED. 2300 REASSESSMENT DONE SEE FLOW SHEET VSS WILL CONTINUE TO MONITOR.
[2019-04-27] VITALS (23 sets, daily range): BP systolic 106–143; BP diastolic 36–54; Ht 157.5 cm; Wt 97.7 kg
--- NOTE | 2019-04-27 05:00 | NUR ---
0100 WATER PROVIDED PER PT REQUEST. NO SIGNS OF ACUTE DISTRESS NOTED. 0300 REASSESSMENT DONE SEE FLOW SHEET. VSS. 0500 CHG BATH GIVEN. COMPLETE LINEN CHANGE PROVIDED. PT AMBULATED WITH ASSISTANCE TO CHAIR. MODERATE ASSISTANCE GIVEN. PT STATES SHE USES A WALKER AT HOME.
--- NOTE | 2019-04-27 07:00 | NUR ---
RECEIVED BEDSIDE REPORT ON PATIENT AND ASSUMED CARE. PATIENT ALERT AND ORIENTED X 4, SITTING UP IN CHAIR. PATIENT WITH LEFT CVL WITH PLASMOLYTE INFUSING AT 30 ML/HR. RIGHT ART LINE LEVELED AND ZEROED, CVP LEVELED AND ZEROED. RIGHT JAMA DRAIN WITH 5 CC SANGINEOUS DRAINAGE EMPTIED. HERNANDEZ WITH 100 ML OF YELLOW, CLEAR UOP NOTED. BBS - CLEAR AND EQUAL, NON LABORED, SPO2 - 100% ON NC AT 2 LPM 02. CM - NSR TO SB WITH NO ECTOPY NOTED, RATE 58-62. HEAD TO TOE ASSESSMENT COMPLETED.
--- NOTE | 2019-04-27 07:52 | NUR ---
PATIENT REPOSITIONED IN BEDSIDE CHAIR. DR. TEAGUE AT ROOM UPDATED AND EXAMINES PATIENT. JAMA DRAIN DC'D, BETADINE APPLIED AND DRESSED WITH 2X2 AND TEGADERM DRESSING. PATIENT GIVEN BREAKFAST TRAY. TO DC ART LINE AND PLASMOLYTE INFUSION. VSS.
--- NOTE | 2019-04-27 09:08 | NUR ---
ART LINE DISCONTINUED PER DR. TEAGUE. DIRECT PRESSURE HELD FOR APPROXIMATELY 2 MINUTES NO HEMATOMA OR BLEEDING NOTED. CLEANED WITH BETADINE AND DRESSED WITH 2X2 AND TEGADERM DRESSING. VSS.
--- NOTE | 2019-04-27 09:09 | NUR ---
DR. SCHWARTZ AT ROOM UPDATED AND EXAMINES PATIENT.
[2019-04-27 09:20] LABS: BASOPHILS 0.2 % (0-2); EOSINOPHILS 0.1 % (0-7); HEMATOCRIT 36.6 % (36.0-48.0); HEMOGLOBIN 11.3 g/dL (12-16); IMMATURE GRANULOCYTES 0.3 % (0-5); LYMPHOCYTES 11.4 % (15-50); MCH 30.1 pg (26.0-34.0); MCHC 30.9 g/dL (31.0-37.0); MCV 97.6 fL (80.0-100.0); MEAN PLATELET VOLUME 11.2 fL (7.4-10.4); MONOCYTES 8.6 % (2-11); NEUTROPHILS 79.4 % (40-80); PLATELET COUNT 256 10x3/uL (130-400); RBC 3.75 10x6/uL (4.00-5.40); RDW 15.1 % (11.5-14.5); WBC 15.3 10x3/uL (4.8-10.8)
[2019-04-27 09:23] LABS: CALCIUM 8.2 mg/dL (8.5-10.1)
--- NOTE | 2019-04-27 11:06 | NUR ---
REASSESSMENT COMPLETED. VSS.
--- NOTE | 2019-04-27 12:04 | NUR ---
PATIENTS DAUGHTER AT ROOM, GIVES PATIENT HER DENTURES. PATIENT REPOSITIONED IN CHAIR AND GIVEN LUNCH TRAY. VSS.
--- NOTE | 2019-04-27 13:11 | NUR ---
PATIENT ATE APPROXIMATELY 85% OF LUNCH TRAY. VSS.
--- NOTE | 2019-04-27 14:49 | OP ---
PATIENT NAME: SANDRA BATES MEDICAL RECORD: [id number] :42 [facility] ADMISSION DATE:04/26/19 SURGEON: TREVOR TEAGUE MD DATE OF OPERATION: 04/26/2019 SURGEON: Trevor Teague MD PROCEDURE PERFORMED: Right carotid endarterectomy. PREOPERATIVE DIAGNOSIS: Right carotid stenosis. POSTOPERATIVE DIAGNOSIS: Right carotid stenosis. ANESTHESIA: General endotracheal anesthesia. ESTIMATED BLOOD LOSS: 20 cc. SPECIMENS: Plaque. COMPLICATIONS: None. CONDITION: Stable. DISPOSITION: CV ICU. OPERATIVE FINDINGS: 1. Discrete calcified and slightly ulcerated plaque at the carotid bulb extending well up the external carotid and slightly at the internal carotid, the plaque feathered well distally. A CorMatrix patch was used for closure. 2. Neurologically intact to CV ICU. INDICATION: Severe right carotid stenosis in a patient with tortuous internal carotids. DESCRIPTION OF PROCEDURE: The patient was brought to the operating suite. General anesthesia was obtained, the patient was prepped and draped. An oblique incision was made in the right neck, taken down through subcutaneous tissue where the common carotid artery was dissected out. Ansa was divided between clips and the hypoglossal nerve was spared from injury. External carotid was dissected out and encircled with a vessel loop. The internal carotid was dissected out distally. Heparin was given. After heparin was circulated, backbleeding was controlled with a bulldog clamp on the internal carotid and flow with a vascular clamp on the common carotid and backbleeding in the external carotid was controlled with a vessel loop. Cerebral oximetry and EEG were monitored for 2 minutes after clamping and they remained normal at that point as well as throughout the entire procedure. Endarterectomy was begun. An arteriotomy in the common carotid artery, taken down to the region of calcification into relatively normal region of the internal carotid. The plaque was divided in the common carotid artery with an eversion endarterectomy of the external carotid and the plaque feathered well distally. Thorough irrigation was undertaken. All bits of loose debris were removed. A CorMatrix patch was cut to the appropriate size and sutured along the edges of the arteriotomy. Prior to completing the anastomosis, backbleeding was allowed from all 3 major vessels and then the endarterectomy again thoroughly flushed with saline. Anastomosis completed. Flow restored first to the external carotid and then to OPERATIVE REPORT [id number] BATESSANDRA Lincoln the internal carotid. Intermittent pledgeted sutures were placed and hemostasis was assured. Protamine was given. Thorough irrigation was undertaken. A drain was placed through a separate stab wound. The neck was closed with 4 layers deep fat, the platysma subcutaneous skin. Dermabond was placed. Anesthesia reversed. The patient to ICU in stable condition. TRANSINT:[id number] Voice Confirmation ID: [id number] DOCUMENT ID: [id number] TREVOR TEAGUE MD at 1449 CC: GRECIA ALCAZAR [id number] DICTATION DATE: 04/26/19 1234 POT SANDER: 04/26/19 2217 ADM IN [facility] [facility] [id number] [place] [address]
--- NOTE | 2019-04-27 15:00 | NUR ---
RESSESSMENT COMPLETED. VSS. DAUGHTER AT BEDSIDE. NO NEEDS AT THIS TIME.
--- NOTE | 2019-04-27 17:33 | NUR ---
HERNANDEZ CATH DISCONTINUED PER ORDER. ASSISTED PATIENT BACK TO BED. VSS.
--- NOTE | 2019-04-27 19:00 | NUR ---
BEDSIDE REPORT AND SHIFT ASSESSMENT COMPLETE, SEE FLOWSHEET. VSS, NO SIGNS OF ACUTE DISTRESS NOTED. R NECK INCISION DRESSING CDI. L SUBCLAVIAN CVL PATENT, DRESSING CDI. PT ALERT AND ORIENTED, REQUESTING GLASS OF WATER. DENIES ANY OTHER NEEDS AT THIS TIME. CALL LIGHT IN REACH, BED IN LOWEST POSITION. WILL MONITOR.
--- NOTE | 2019-04-27 21:00 | NUR ---
MEDS GIVEN PER MAR AND TOLERATED BY PT. NEURO ASSESSMENT COMPLETE, NO CHANGES NOTED. VSS. PT DENIES ANY NEEDS AT THIS TIME.
--- NOTE | 2019-04-27 23:00 | NUR ---
REASSESSMENT COMPLETE, SEE FLOWSHEET.
[2019-04-28] VITALS (24 sets, daily range): BP systolic 116–164; BP diastolic 34–61
--- NOTE | 2019-04-28 02:00 | NUR ---
PT HARD TO AROUSE, TACTILE STIMULATION AND NEURO CHECKS PERFORMED, NO DEFICITS NOTED.
--- NOTE | 2019-04-28 03:00 | NUR ---
REASSESSMENT COMPLETE, SEE FLOWSHEET.
--- NOTE | 2019-04-28 06:00 | NUR ---
ASSISTED PT TO BEDSIDE CHAIR. PT FREQUENTLY DROWSY, SLURRS WORDS, SLOW TO RESPOND, AND OFTEN FALLS ASLEEP MID CONVERSATION. ATTEMPTED TO REORIENT. ANSWERS APPROPRIATELY. NO DEFICITS NOTED.
[2019-04-28 06:13] LABS: ALBUMIN 2.6 g/dL (3.4-5.0); ANION GAP 10.6 mmol/L (8-16); BASOPHILS 0.1 % (0-2); BILIRUBIN - TOTAL 0.26 mg/dL (0.2-1.3); CALCIUM 8.6 mg/dL (8.5-10.1); CARBON DIOXIDE 28.5 mmol/L (21.0-32.0); CREATININE - SERUM 1.7 mg/dL (0.6-1.3); EOSINOPHILS 1.7 % (0-7); HEMATOCRIT 37.3 % (36.0-48.0); HEMOGLOBIN 11.2 g/dL (12-16); IMMATURE GRANULOCYTES 0.5 % (0-5); LYMPHOCYTES 12.1 % (15-50); MCH 29.6 pg (26.0-34.0); MCV 98.7 fL (80.0-100.0); MEAN PLATELET VOLUME 11.1 fL (7.4-10.4); MONOCYTES 9.4 % (2-11); NEUTROPHILS 76.2 % (40-80); PLATELET COUNT 251 10x3/uL (130-400); POTASSIUM - SERUM 5.1 mmol/L (3.5-5.1); PROTEIN - SERUM 6.2 g/dL (6.4-8.2); RBC 3.78 10x6/uL (4.00-5.40); RDW 15.3 % (11.5-14.5); WBC 14.6 10x3/uL (4.8-10.8)
--- NOTE | 2019-04-28 07:00 | NUR ---
SPOKE WITH DR TEAGUE, UPDATE GIVEN ON PT STATUS. NEW ORDERS RECEIVED.
--- NOTE | 2019-04-28 07:30 | NUR ---
PATIENT SLEEPY, SLOW TO RESPOND, SOME SPEECH IS SLURRED. STATES HURTS ALL OVER. RIGHT NECK DRESSINGS DRY AND INTACT. NS INFUSING LEFT SUBCLAVIAN AT 75 ML HOUR. HEAD OF BED ELEVATED 30 DEGREES. SCD'S ON LOWER LEGS. MONITOR SR. ANSWERS QUESTIONS APPRIOPIATELY, MOVES ALL EXTREMITIES HAND DATABASE DEVELOPER EQUAL BUT WEAK. PATIENT STATES SHE IS NOT STRONG. NPO UNTIL DR. TEAGUE STATES SHE CAN EAT.
--- NOTE | 2019-04-28 08:00 | NUR ---
DAUGHTER HERE UPDATE GIVEN. STATES WHEN PATIENT IS EXHAUSTED SHE ACTS LIKE THIS.
--- NOTE | 2019-04-28 09:00 | NUR ---
DR. TEAGUE HERE. ORDERS FOR STAT CT SCAN
--- NOTE | 2019-04-28 09:30 | NUR ---
CT SCAN COMPLETED PATIENT TOLERATED FAIR. INCONT ON URINE. PULL UP ON PATIENT. PUREWICK APPLIED TO PATIENT. PURPLE PULL SHEET APPLIED TO BED PATIENT REPOSITIONED ON RIGHT SIDE. NO SKIN BREAKDOWN NOTED. DAUGHTER AT BEDSIDE
--- NOTE | 2019-04-28 10:51 | NUR ---
RESTING COMFORTABLY NO DISTRESS.
--- NOTE | 2019-04-28 11:19 | NUR ---
Nutrition Follow-up: POD 2 carotid endarterectomy. Very lethargic this AM and did not eat; per nursing note, pt NPO until ok with Dr. Norman. C/o painful swallowing. Diet: Diabetic, Dental Soft, Glucerna TID PO intake: 50-85% yesterday Wt: 220.4# (04/28); 221# (04/27); 217# (04/26) Last BM: 04/25 per daughter Labs noted: Glu 234, Alb 2.6 Meds noted: NS @ 75, Humulin, Protonix, vitamin D -Resume diet when ok with MD. -MD may consider ST eval. -Monitor wt. -RD following.
--- NOTE | 2019-04-28 11:39 | MORECARE ---
CASE MANAGEMENT DISCHARGE SUMMARY PATIENT: SANDRA BATES UNIT: [id number] ADM DATE: 04/26/19 AGE: 79 : 41 SEX: F ROOM/BED: [facility] AUTHOR: MARILEE OAKES PHYSICIAN: REFERRING PHYSICIAN: NAILA TEAGUE MD DATE OF SERVICE: 04/28/19 Discharge Plan Patient Name: SANDRA BATES [facility] [facility] 1940 Planned Disposition: Home Anticipated Discharge Date: Discharge Date: Expected LOS: Initial Reviewer: [email or web address] Initial Review Date: 04/27/2019 Generated: 04/28/19 12:38 pm DCPIA - Discharge Planning Initial Assessment Updated by [email or web address]: Ashley Soto on 04/28/19 11:36 am * Is the patient Alert and Oriented? Yes * How many steps to enter\exit or inside your home? * PCP Eden Nelson APN * Pharmacy [facility] * Preadmission Environment Home with Family * ADLs Independent * Other Equipment Hospital Bed, w/c, walker, Nebulizer, Home Concentrator, BSC * List name and contact numbers for known caregivers / representatives who currently or will assist patient after discharge: Diane Elizondo - ángel - [phone] * Verbal permission to speak to the caregivers and representatives has been obtained from the patient. Yes * Community resources currently utilized Private Duty Care * Please name any agencies selected above. [facility] * Additional services required to return to the preadmission environment? No * Can the patient safely return to the preadmission environment? Yes * Has this patient been hospitalized within the prior 30 days at any hospital? No Patient Name: SANDRA BATES Page [id number] at 1139 All edits/amendments must be made on the electronic document DICTATION DATE: 04/28/19 113 HOGSHEAD HEAD MATCHER: DEWEY 04/28/19 1138 RPT#: [id number] DC DATE: STATUS: ADM IN [facility] [address] [place] [address] END OF REPORT
--- NOTE | 2019-04-28 11:49 | MORECARE ---
CASE MANAGEMENT DISCHARGE SUMMARY PATIENT: SANDRA BATES UNIT: [id number] ADM DATE: 04/26/19 AGE: 79 : 41 SEX: F ROOM/BED: [facility] AUTHOR: CHAMP,DOC PHYSICIAN: REFERRING PHYSICIAN: NAILA TEAGUE MD DATE OF SERVICE: 04/28/19 Discharge Plan Patient Name: SANDRA BATES Facility: [facility]:[place] : 1940 Planned Disposition: Home Anticipated Discharge Date: Discharge Date: Expected LOS: Initial Reviewer: [email or web address] Initial Review Date: 04/27/2019 Generated: 04/28/19 12:48 pm Comments DCP- Discharge Planning Updated by [email or web address]: Ashley Soto on 04/28/19 10:[address] Late Entry 04/27/19 Patient Name: SANDRA BATES Admission Status: Elective Accout number: [id number] Admission Date: 04-26-2019 : 1940 Admission Diagnosis: Attending: NAILA TEAGUE Current LOS: 2 Anticipated DC Date: Planned Disposition: Home Primary Insurance: [facility] MEDICARE SOLUTIONS Discharge Planning Comments: CM met with patient to complete initial dc planning assessment. CM educated patient on the CM role and verbal consent given by patient to complete assessment. Patient lives at home with her where she is independent with her care. At discharge patient plans to return home and feels this is a safe discharge. CM discussed availability of home health, rehab services, and medical equipment. Her daughter will be her operator and truck driver home. Patient has a nebulizer and home o2 ( [employer]) Patient has private care with [facility]. Patient denied known discharge needs at this time. CM will continue to follow and will assist as needed with dc plans/needs. Drawer In Plain Loom: Ashley Soto DCPIA - Discharge Planning Initial Assessment Updated by [email or web address]: Ashley Soto on 04/28/19 11:36 am * Is the patient Alert and Oriented? Yes * How many steps to enter\exit or inside your home? * PCP Eden Nelson SPECTROGRAPHIC ANALYST * Pharmacy [facility] * Preadmission Environment Home with Family * ADLs Independent * Other Equipment Hospital Bed, w/c, walker, Nebulizer, Home Concentrator, BSC * List name and contact numbers for known caregivers / representatives who currently or will assist patient after discharge: Diane Elizondo - daughter - [phone] * Verbal permission to speak to the caregivers and representatives has been obtained from the patient. Yes * Community resources currently utilized Private Duty Care * Please name any agencies selected above. [facility] * Additional services required to return to the preadmission environment? No * Can the patient safely return to the preadmission environment? Yes * Has this patient been hospitalized within the prior 30 days at any hospital? No Last DP export: 04/28/19 10:39 a Patient Name: SANDRA BATES Page [id number] at 1149 All edits/amendments must be made on the electronic document DICTATION DATE: 04/28/19 1148 INTERNAL MEDICINE NURSE PRACTITIONER: DEWEY 04/28/19 1148 RPT#: [id number] DC DATE: STATUS: ADM IN [facility] [address] [place] [address] END OF REPORT
--- NOTE | 2019-04-28 12:00 | NUR ---
SON HERE. PATIENT TALKING TO SON. PATIENT STILL SLOW TO RESPOND WITH THICK TONGUE. ORIENTATED. MOVING ALL EXTREMITITES. HANDS BASEBALL GLOVE SHAPER EQUAL.
--- NOTE | 2019-04-28 14:00 | NUR ---
REPOSITIONED. INCONT OF URINE. CLEAR LÁZARO URINE. NO CHANGE. KNOWS WHO THE PRESIDENT IS, WHERE SHE IS AND WHY SHE IS HERE. OBEYS COMMANDS. STILL SLOW TO RESPOND AND SLEEPY ACTING. SPEAKING WITH THICK TONGUE. DAUGHTER AT BEDSIDE.
--- NOTE | 2019-04-28 15:00 | NUR ---
HIBCLENS BATH GIVEN PURE WICK NOT WORKING TO WELL, INCONT OF URINE. STILL SLEEPY, BUT ANSWERS QUESTIONS APPRIOPIATELY. DRESSING RIGHT NECK DRY AND INTACT. SAYS "NO" TO EVERYTHING. NEEDS GREAT ENCOURAGEMENT TO HELP TURN HERSELF.
--- NOTE | 2019-04-28 15:30 | NUR ---
UP IN CHAIR AT BEDSIDE WITH 2 NURSES ASSISTING. KASH. INCONT OF URINE WHEN IN CHAIR. PATIENT STOOD UP TO PLACE DRY PAD.
--- NOTE | 2019-04-28 16:30 | NUR ---
DINNER TRAY SERVED. REFUSING TO EAT, FEED ONE BITE OF MAC AND CHEESE AND DRANK GLUCERNA WITH PO MEDS. NO DIFFICULTY SWALLOWING. FEED BY DAUGHTER. ATE POORLY
--- NOTE | 2019-04-28 17:42 | NUR ---
LEGS ELEVATED IN CHAIR. STILL SAYING "NO" TO EVERYTHING AND STATES THAT SHE IS HURTING ALL OVER. MONITOR SR. RIGHT NECK DRESSING DRY AND INTACT'
--- NOTE | 2019-04-28 18:00 | NUR ---
RETURNED TO BED, ALMOST TOTAL LIFT TO GET BACK INTO BED. MALDONADO CARE DONE/ PURE WICK REPLACED. INCONT GOT UP TO GO TO BED. REPLACE BIPIN, SOCK AND SCD TO LOWER LEGS.
--- NOTE | 2019-04-28 19:00 | NUR ---
REPORT RECEIVED. PT AAOX4, ALTHOUGH VERY LETHARGIC. SLOW TO RESPOND BUT RESPONDS APPROPRIATELY. ASSESSMENT COMPLETE, SEE FLOWSHEET. LT SUBCLAVIAN CVL INFUSING, SEE IV FLOWSHEET. WILL CONTINUE TO MONITOR.
--- NOTE | 2019-04-28 21:00 | NUR ---
PT STILL SLOW TO RESPOND, BUT AWAKE AND ALERT. SOME DIFFICULTY SWALLOWING WATER, HOWEVER HAD MODERATE SUCCESS ADMINISTERING PO MEDS WITH APPLESAUCE. NO SIGNS OF CHOKING WITH APPLESAUCE. PT STILL VERY WEAK. WILL CONTINUE TO MONITOR.
--- NOTE | 2019-04-28 23:00 | NUR ---
PT PERIODICALLY CRIES OUT "NO" MULTIPLE TIMES BEFORE DRIFTING BACK OFF TO SLEEP. FOLLOWS COMMANDS AND IS EASILY AROUSABLE. WILL CONTINUE TO MONITOR.
[2019-04-29] VITALS (15 sets, daily range): BP systolic 95–169; BP diastolic 30–58
--- NOTE | 2019-04-29 01:00 | NUR ---
PT RESTING IN BED, EASILY AROUSED. PT ALERT AND ORIENTED BUT STILL LETHARGIC.
--- NOTE | 2019-04-29 03:00 | NUR ---
PT LETHARGIC, ABLE TO EAT APPLESAUCE WITHOUT DIFFICULTY. WILL CONTINUE TO MONITOR.
--- NOTE | 2019-04-29 05:00 | NUR ---
PT RESTING IN BED, EASILY AROUSED. LETHARGIC, BUT AAOX4.
--- NOTE | 2019-04-29 07:00 | NUR ---
RECEIVED BEDSIDE REPORT ON PATIENT AND ASSUMED CARE. PATIENT RESTING QUIELTY, WITH EYES CLOSED, EASILY AROUSED BY VOICE, RECALLS MY NAME FROM TAKING CARE OF HER ON FRIDAY. PATIENT LETHARGIC BUT ORIENTED X 4. ASSISTED TO BEDSIDE CHAIR FOR BREAKFAST, MAXIMAL ASSIST. LEFT SUBCLAVIAN INTACT WITH NS INFUSING AT 75 ML/HR. AIRWICK EXTERNAL FEMALE URINE DEVICE IN PLACE. GLASSES ON. BBS - CLEAR AND EQUAL, DIMINISHED IN THE BASES. SPO2 - 99% ON 2 LPM VIA NC. RR - 16. CM RATE OF 56, SB NO ECTOPY NOTED. SCDS AND BIPIN HOSE IN PLACE. VSS. HEAD TO TOE ASSESSMENT COMLETED.
[2019-04-29 07:57] LABS: BASOPHILS 0.2 % (0-2); EOSINOPHILS 3.1 % (0-7); HEMOGLOBIN 11.5 g/dL (12-16); IMMATURE GRANULOCYTES 0.4 % (0-5); LYMPHOCYTES 18.8 % (15-50); MCH 30.1 pg (26.0-34.0); MCHC 30.3 g/dL (31.0-37.0); MCV 99.5 fL (80.0-100.0); MEAN PLATELET VOLUME 11.3 fL (7.4-10.4); MONOCYTES 9.2 % (2-11); NEUTROPHILS 68.3 % (40-80); PLATELET COUNT 239 10x3/uL (130-400); RBC 3.82 10x6/uL (4.00-5.40); RDW 14.7 % (11.5-14.5); WBC 11.5 10x3/uL (4.8-10.8)
[2019-04-29 08:07] LABS: ANION GAP 7.4 mmol/L (8-16); CALCIUM 8.9 mg/dL (8.5-10.1); CARBON DIOXIDE 33.5 mmol/L (21.0-32.0); CREATININE - SERUM 1.8 mg/dL (0.6-1.3); POTASSIUM - SERUM 4.9 mmol/L (3.5-5.1)
--- NOTE | 2019-04-29 08:08 | NUR ---
DAUGHTER AT BEDSIDE, ASSISTING PATIENT WITH BREAKFAST. VSS.
--- NOTE | 2019-04-29 09:30 | NUR ---
PATIENT GIVEN MORNING MEDS IN APPLESAUCE AND THEN TO MRI.
--- NOTE | 2019-04-29 09:56 | NUR ---
PATIENT BACK FROM MRI.
--- NOTE | 2019-04-29 11:03 | NUR ---
REASSESSMENT COMPLETED. PATIENT IN BED, VISITING WITH DAUGHTER AND VISITORS AT BEDSIDE, FSBS - 219 MG/DL.
--- NOTE | 2019-04-29 12:58 | NUR ---
REHAB PRESCREENING Rehab referral received and chart reviewed. Ms. Rwoe has [facility] as her provider which requires prior authorization for Acute Inpatient Rehab. She does have PT and OT ordered. Rehab will initiate pre-auth when PT and OT evaluations are documented. Thank you for this referral! Kristie Bridges, OUTSOLE LEVELER Rehab PD
--- NOTE | 2019-04-29 13:24 | NUR ---
REPORT CALLED TO [facility] AND GIVEN TO JAREN ARNOLD. PATIENT TO TRANSFER FOR NEURO COVERAGE TO ICU SOUT ROOM #18.
--- NOTE | 2019-04-29 15:00 | NUR ---
REASSESSMENT COMPLETED. VSS.
--- NOTE | 2019-04-29 15:47 | NUR ---
PATIENT LEFT VIA [facility], PORTABLE O2 AT 2 LPM, IV INFUSING AT 75 ML/HR NS AND CM - NSR RATE OF 76.
--- NOTE | 2019-04-30 18:58 | MORECARE ---
CASE MANAGEMENT DISCHARGE SUMMARY PATIENT: SANDRA BATES UNIT: [id number] ADM DATE: 04/26/19 AGE: 79 : 41 SEX: F [facility] AUTHOR: MARILEE OAKES PHYSICIAN: REFERRING PHYSICIAN: NAILA TEAGUE MD DATE OF SERVICE: 04/30/19 Discharge Plan Patient Name: SANDRA BATES Facility: [facility]:[place] : 1940 Planned Disposition: Home Anticipated Discharge Date: Discharge Date: 04/29/2019 Expected LOS: Initial Reviewer: [email or web address] Initial Review Date: 04/27/2019 Generated: 04/30/19 7:58 pm Comments DCP- Discharge Planning Updated by [email or web address]: Ashley Soto on 04/30/19 5:[address] Patient Name: SANDRA BATES Admission Status: Elective Accout number: [id number] Admission Date: 04-26-2019 : 1940 Admission Diagnosis: Attending: NAILA TEAGUE Current LOS: 3 Anticipated DC Date: Planned Disposition: Home Primary Insurance: [facility] MEDICARE SOLUTIONS Discharge Planning Comments: PATIENT TO TRANSFER TO [facility] FOR NEURO EVALUATION. FAMILY AT BEDSIDE WILL TRANSFER VIA AMBULANCE Planner Chief: Ashley Soto DCP- Discharge Planning Updated by [email or web address]: Ashley Soto on 04/28/19 10:[address] Late Entry 04/27/19 Patient Name: SANDRA BATES Admission Status: Elective Accout number: [id number] Admission Date: 04-26-2019 : 1940 Admission Diagnosis: Attending: NAILA TEAGUE Current LOS: 2 Anticipated DC Date: Planned Disposition: Home Primary Insurance: [facility] MEDICARE SOLUTIONS Discharge Planning Comments: CM met with patient to complete initial dc planning assessment. CM educated patient on the CM role and verbal consent given by patient to complete assessment. Patient lives at home with her where she is independent with her care. At discharge patient plans to return home and feels this is a safe discharge. CM discussed availability of home health, rehab services, and medical equipment. Her daughter will be her wedding transportation driver home. Patient has a nebulizer and home o2 ( [employer]) Patient has private care with [facility]. Patient denied known discharge needs at this time. CM will continue to follow and will assist as needed with dc plans/needs. Planner Chief: Ashley Soto DCPIA - Discharge Planning Initial Assessment Updated by [id number]: Ashley Soto on 04/28/19 11:36 am * Is the patient Alert and Oriented? Yes * How many steps to enter\exit or inside your home? * PCP Eden Nelson APN * Pharmacy [place] * Preadmission Environment Home with Family * ADLs Independent * Other Equipment Hospital Bed, w/c, walker, Nebulizer, Home Concentrator, BSC * List name and contact numbers for known caregivers / representatives who currently or will assist patient after discharge: Katerina Sr - daughter - [phone] * Verbal permission to speak to the caregivers and representatives has been obtained from the patient. Yes * Community resources currently utilized Private Duty Care * Please name any agencies selected above. [facility] * Additional services required to return to the preadmission environment? No * Can the patient safely return to the preadmission environment? Yes * Has this patient been hospitalized within the prior 30 days at any hospital? No Coverage Notice Reviewer: [id number] - Ashley Soto Notice Issued Date-Time: 04/29/2019 13:55 Notice Type: IM Discharge Notice Notice Delivered To: Family Member Relationship to Patient: Daughter Film Editor Name: KATERINA SR Delivery Method: HAND - Hand Delivered Connie Days: Prior Verbal Notification: Recipient Understood Notice: Yes Recipient Signature: Yes Med Rec Note Co-signed by Attending: Coverage Notice Comment: Last DP export: 04/28/19 10:49 a Patient Name: SANDRA BATES Page [id number] at 1858 All edits/amendments must be made on the electronic document DICTATION DATE: 04/30/191857 CARD GAME OPERATOR: DEWEY 04/30/191857 RPT#: [id number] DC DATE:04/29/19 STATUS: DIS IN [facility] [address] [place] [address] END OF REPORT
--- NOTE | 2019-04-30 19:59 | MORECARE ---
CASE MANAGEMENT DISCHARGE SUMMARY PATIENT: SANDRA BATES UNIT: [id number] ADM DATE: 04/26/19 AGE: 79 : 41 SEX: F [facility] AUTHOR: MARILEE OAKES PHYSICIAN: REFERRING PHYSICIAN: NAILA TEAGUE MD DATE OF SERVICE: 04/30/19 Discharge Plan Patient Name: SANDRA BATES Facility: [facility]:[place] : 1940 Planned Disposition: Home Anticipated Discharge Date: Discharge Date: 04/29/2019 Expected LOS: Initial Reviewer: [email or web address] Initial Review Date: 04/27/2019 Generated: 04/30/19 8:58 pm Comments DCP- Discharge Planning Updated by [email or web address]: Ashley Soto on 04/30/19 5:[address] Patient Name: SANDRA BATES Admission Status: Elective Accout number: [id number] Admission Date: 04-26-2019 : 1940 Admission Diagnosis: Attending: NAILA TEAGUE Current LOS: 3 Anticipated DC Date: Planned Disposition: Home Primary Insurance: [facility] MEDICARE SOLUTIONS Discharge Planning Comments: PATIENT TO TRANSFER TO [facility] FOR NEURO EVALUATION. FAMILY AT BEDSIDE WILL TRANSFER VIA AMBULANCE Slot Key Person: Ashley Soto DCP- Discharge Planning Updated by [email or web address]: Ashley Soto on 04/28/19 10:[address] Late Entry 04/27/19 Patient Name: SANDRA BATES Admission Status: Elective Accout number: [id number] Admission Date: 04-26-2019 : 1940 Admission Diagnosis: Attending: NAILA TEAGUE Current LOS: 2 Anticipated DC Date: Planned Disposition: Home Primary Insurance: [facility] MEDICARE SOLUTIONS Discharge Planning Comments: CM met with patient to complete initial dc planning assessment. CM educated patient on the CM role and verbal consent given by patient to complete assessment. Patient lives at home with her where she is independent with her care. At discharge patient plans to return home and feels this is a safe discharge. CM discussed availability of home health, rehab services, and medical equipment. Her daughter will be her airport driver home. Patient has a nebulizer and home o2 ( [employer]) Patient has private care with [facility]. Patient denied known discharge needs at this time. CM will continue to follow and will assist as needed with dc plans/needs. Slot Key Person: Ashley Soto DCPIA - Discharge Planning Initial Assessment Updated by [email or web address]: Ashley Soto on 04/28/19 11:36 am * Is the patient Alert and Oriented? Yes * How many steps to enter\exit or inside your home? * PCP Eden Nelson APN * Pharmacy [place] * Preadmission Environment Home with Family * ADLs Independent * Other Equipment Hospital Bed, w/c, walker, Nebulizer, Home Concentrator, BSC * List name and contact numbers for known caregivers / representatives who currently or will assist patient after discharge: Katerina Sr - daughter - [phone] * Verbal permission to speak to the caregivers and representatives has been obtained from the patient. Yes * Community resources currently utilized Private Duty Care * Please name any agencies selected above. [facility] * Additional services required to return to the preadmission environment? No * Can the patient safely return to the preadmission environment? Yes * Has this patient been hospitalized within the prior 30 days at any hospital? No Coverage Notice Reviewer: [email or web address] - Ashley Soto Notice Issued Date-Time: 04/29/2019 13:55 Notice Type: IM Discharge Notice Notice Delivered To: Family Member Relationship to Patient: Daughter Dough Molder Name: KATERINA SR Delivery Method: HAND - Hand Delivered Connie Days: Prior Verbal Notification: Recipient Understood Notice: Yes Recipient Signature: Yes Med Rec Note Co-signed by Attending: Coverage Notice Comment: Last DP export: 04/30/19 5:58 p Patient Name: SANDRA BATES Page [id number] at 1959 All edits/amendments must be made on the electronic document DICTATION DATE: 04/30/191957 POCKET ASSEMBLER: DEWEY 04/30/191957 RPT#: [id number] DC DATE:04/29/19 STATUS: DIS IN [facility] [address] [place] [address] END OF REPORT
== END 2019-04-29 15:51 | disposition home or self-care (01) | DRG 38 ==
LOC: D.CVICU 04-26 05:10 → D.SDCHOLD 04-26 05:10 → D.CVICU 04-26 10:37 → D.SDCHOLD 04-27 07:30 → D.CVICU 04-29 15:51
PROVIDERS: Internal Medicine Nephrology; ADMIT Thoracic Surgery (Cardiothoracic Vascular Surgery); ATTEND Thoracic Surgery (Cardiothoracic Vascular Surgery)
PROC: 03UK0JZ Supplement Right Internal Carotid Artery with Synthetic Substitute, Open Approach (ICD-10-PCS; 2019-04-26)
PROC: 03CK0ZZ Extirpation of Matter from Right Internal Carotid Artery, Open Approach (ICD-10-PCS; principal; 2019-04-26 07:30)
DX: I65.21 Occlusion and stenosis of right carotid artery (principal); N17.9 Acute kidney failure, unspecified; I10 Essential (primary) hypertension; E11.9 Type 2 diabetes mellitus without complications; I25.10 Atherosclerotic heart disease of native coronary artery without angina pectoris; K21.9 Gastro-esophageal reflux disease without esophagitis; G25.81 Restless legs syndrome; F32.9 Major depressive disorder, single episode, unspecified; M19.90 Unspecified osteoarthritis, unspecified site; Z85.43 Personal history of malignant neoplasm of ovary; R13.10 Dysphagia, unspecified

== ENCOUNTER 2020-06-23 10:05 | Emergency (ER) | payer MEDICARE, MEDICAID ==
[~2020-06-23] VITALS: Ht 157.5 cm; Wt 127.3 kg
[~2020-06-23 10:05] MED LIST changes: +FISH OIL 1,0001 CA1 PO; +PRIMSOL50 MG/5 ML PO
[2020-06-23 10:13] VITALS: BP 164/51; Ht 157.5 cm; Wt 127.3 kg
[2020-06-23 11:08] LABS: BASOPHILS 0.2 % (0-2); HEMATOCRIT 44.9 % (36.0-48.0); HEMOGLOBIN 13.9 g/dL (12-16); IMMATURE GRANULOCYTES 0.3 % (0-5); LYMPHOCYTE ABS# 2.02 10x3/uL (1.18-3.74); MCH 30.3 pg (26.0-34.0); MEAN PLATELET VOLUME 11.5 fL (7.4-10.4); MONOCYTES 8.2 % (2-11); NEUTROPHIL ABS# 10.68 10x3/uL (1.56-6.13); NEUTROPHILS 74.3 % (40-80); PLATELET COUNT 270 10x3/uL (130-400); RBC 4.58 10x6/uL (4.00-5.40); RDW 16.1 % (11.5-14.5); WBC 14.4 10x3/uL (4.8-10.8)
[2020-06-23 12:09] LABS: ANION GAP 12.5 mmol/L (8-16); CALCIUM 9.3 mg/dL (8.5-10.1); CARBON DIOXIDE 29.3 mmol/L (21.0-32.0); CREATININE - SERUM 2.1 mg/dL (0.6-1.3); POTASSIUM - SERUM 4.8 mmol/L (3.5-5.1)
[2020-06-23 12:15] LABS: ALBUMIN 3.1 g/dL (3.4-5.0); BILIRUBIN - TOTAL 0.25 mg/dL (0.2-1.3); PROTEIN - SERUM 7.1 g/dL (6.4-8.2)
== END 2020-06-23 13:30 | disposition home or self-care (01) ==
LOC: D.ER 10:05
PROVIDERS: Emergency Medicine
DX: R22.0 Localized swelling, mass and lump, head (principal); T78.40XA Allergy, unspecified, initial encounter; E11.9 Type 2 diabetes mellitus without complications; K21.9 Gastro-esophageal reflux disease without esophagitis; Z79.4 Long term (current) use of insulin; R06.02 Shortness of breath